=== PATIENT | female | born 2000 | race Caucasian/White ===

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

== ENCOUNTER → 2022-05-02 | Outpatient (CLI) | payer MEDICAID, SELFPAY ==
[2022-05-02 15:58] LABS: Mucous, Urine 0 SEEN /hpf (<or=2+)
[2022-05-02 16:42] LABS: Color, Urine Straw (Yellow); Glucose, Dipstick Normal (Normal); Ketone-Dipstick Negative (Negative); Leukocyte Esterase-Dipstick 500 /ul (Negative); Nitrite-Dipstick Negative (Negative); Occult Blood-Urine 250 /ul (Negative); Protein-Dipstick 30 mg/dl (Negative); Specific Gravity, Urine 1.005 (1.002-1.030); Urine Bilirubin Dipstick Negative (Negative); Urine Clarity Clear (Clear); Urine Urobilinogen Normal (Normal); Urine pH 6.5 (5.0 - 8.0)
[2022-05-02 18:55] LABS: Bacteria 1+ /hpf (None Seen); Red Blood Cells-Urine 0-5 SEEN /hpf (0-5); Squamous Epithelial Cells - UA 0-5 SEEN /hpf (5-10); White Blood Cells 5-10 SEEN /hpf (0-5)
== END | disposition home or self-care (01) ==
LOC: LABSPEC 15:17
PROVIDERS: PCP Pediatrics; Visit Provider Physician Assistant Surgical
DX: R30.0 Dysuria (principal)
CPT/HCPCS: 81001; 87077; 87086; 87088; 87186

== ENCOUNTER 2022-06-19 08:00 | Outpatient (RCR) | payer MEDICAID, SELFPAY ==
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
--- NOTE | 2022-06-19 10:10 | BH.SGPN.GN ---
Behaviors/Verbalizations/Mental Status: [] Client alert and oriented, neatly dressed and groomed. Eye contact normal. Motor activity appropriate. Speech within normal limits. Affect flat, mood anxious. Thoughts linear, logical, no signs of hallucinations or delusions. Client Response/Progress/Benefit: [] Client's first day in program and getting adjusted to group environment. Was semi-engaged participant AEB a sharing when prompted, listening to peers, and participated in activity. Connected with the topic of pitfalls and listened to group discussion on barriers that prevent from choosing a healthier path to mental wellness. Group worked together to identify examples of personal pitfalls which included being in denial, emotional outbursts, and procrastination. Client benefited from group as she learned to better identify potential barriers to improving mental health symptoms. Client will continue IOP tx to challenge negative thought patterns, increase consistent use of healthy coping skills and prevent decompensation. Narrative Note: []
--- NOTE | 2022-06-19 11:26 | BH.COMM_ITS ---
Communication Note - Communication with Client Communication Note: Met with pt to complete initial paperwork. No significant changes since pre-admission screening. Completed [place] Suicide Screening. Low risk. Pt reports history of one suicide attempt in 2019 and one interrupted attempt before then. Pt was hospitalized in 2019. Pt denies any thoughts of and denies SI within the past month. Consulted with Dr. Doll with plan to admit to IOP level of care with dx of MDD, recurrent, severe without psychosis F 33.2
--- NOTE | 2022-06-21 09:05 | BH.SGPN.GN ---
Behaviors/Verbalizations/Mental Status: []Eye contact good, casually dressed, motor activity appropriate, speech normal rate and tone, mood depressed, congruent affect, thoughts linear and intact, no evidence of delusions or hallucinations. Reviewed pt's symptom tracker, pt denies suicidal ideation, plan, or intent as of this date. Future oriented. Client Response/Progress/Benefit: []Pt responded well to session, attentive and willing to process with group. Pt reports feeling defeated this morning. Pt responded well to supportive feedback provided by the group. Shared current emotion is related to several stressors including her brother?s recent changes in physical health status. Pt identified wanting to be able to do more to support him but is struggling with accepting this is out of her control. She did well to identify wins, which included taking a walk outside to ground and practice mindfulness. Additional win noted as going shopping for things she needed despite not wanting to. Progress noted in beginning to apply skills learned thus far in IOP group and improved engagement in group setting. Recommended continued IOP tx to continue to improve consistent use of healthy coping skills, promote mood stability, as well as prevent decompensation. Narrative Note: []
--- NOTE | 2022-06-21 11:10 | BH.SGPN.GN ---
Behaviors/Verbalizations/Mental Status: []Pt alert and oriented, casually dressed and groomed. Eye contact good. Motor activity appropriate. Speech within normal limits. Affect constricted, mood anxious and depressed. Thoughts linear, logical, no signs of hallucinations or delusions. Client Response/Progress/Benefit: []Pt was engaged during discussion and willing to complete the worksheet challenging them to develop a personal SMART goal. Pt chose the goal of taking her dog for a walk every day for a week. Pt stated this will benefit them by helping pt get fresh air and exercise and allowing pt time with her pet. Pt identified barriers which included forgetfulness, lack of energy, anxiety and panic, and lack of motivation. Pt receptive to identifying solutions for these barriers and willing to begin working on this goal. Benefited from this group by developing a short-term SMART goal related to mental health. Will continue IOP tx to prevent decompensation, gain healthy coping skills to manage PTSD, and gain healthy supports. Narrative Note: []
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
[2022-06-21 11:46] VITALS: BP 127/77; PULSE 77
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
--- NOTE | 2022-06-21 12:36 | BH.DR.ITP ---
Initial Treatment Plan Patient Information Visit Information: ADMISSION DATE: EXPECTED LOS: 4-6 weeks Problems/Symptoms Problem #1:: Depression Symptom:: Sadness, hopelessness, worthlessness, guilt, fatigue, biological disruption of sleep, decreased concentration Problem #2:: Anxiety Symptom:: Worry, rumination, avoidance, flashbacks, nightmares, reexperiencing, panic attacks
--- NOTE | 2022-06-23 09:10 | BH.SGPN.GN ---
Behaviors/Verbalizations/Mental Status: Eye contact good, casually dressed, motor activity appropriate, speech normal rate and tone, mood depressed and anxious, congruent affect, thoughts linear and intact, no evidence of delusions or hallucinations. Reviewed pt's symptom tracker, pt denies suicidal ideation, plan, or intent as of this date. Future oriented. Client Response/Progress/Benefit: []Pt responded well to session, attentive and willing to process with group. Pt reports feeling tired this morning. Pt did well to identify wins, which included spending time cleaning her home and listening to music rather than isolating in her room yesterday. Additional win noted as getting outside and filling the bird feeders, which pt notes helped to maintain a positive perspective yesterday. Stressor identified as upcoming plans with her sister that she is worried her sister is going to cancel on. Shared that she can still go to the show if her sister cancels but that she would have to find another way there. Appeared to benefit from group?discussion and supportive environment. Progress noted in increased engagement in the group setting. Recommended continued IOP tx to continue to improve consistent use of healthy skills, promote mood stability, as well as prevent decompensation. Narrative Note: []
--- NOTE | 2022-06-23 10:10 | BH.SGPN.GN ---
Behaviors/Verbalizations/Mental Status: [] Client alert and oriented, casually dressed and groomed. Eye contact good. Motor activity appropriate. Speech within normal limits. Affect congruent, mood euthymic. Thoughts linear, logical, no signs of hallucinations or delusions. Client Response/Progress/Benefit: [] Client responded well to session, contributing to discussion and engaged during the activity. Attentive during discussion on the quote and shared Being comfortable and confident way not motivate change Group identified the benefits of change which included: personal growth, improved relationships, more confidence, and progress towards goals. Worked with the group to identify barriers to change, which included: uncomfortable emotions such as anxiety, lack of motivation, others's opinions, and negative thinking. Client participated along with group in activity where they identified and discussed the emotions related to change. Benefited from increased awareness and understanding of emotions, benefits, and barriers related to change. Will continue IOP tx to continue to prevent decompensation and increase overall functioning. Narrative Note: [] Behaviors/Verbalizations/Mental Status: [] Client alert and oriented, casually dressed and groomed. Eye contact good. Motor activity appropriate. Speech within normal limits. Affect congruent, mood euthymic. Thoughts linear, logical, no signs of hallucinations or delusions. Client Response/Progress/Benefit: [] Client responded well to session, contributing to discussion and engaged during the activity. Attentive during discussion on the quote and shared Being comfortable and confident way not motivate change Group identified the benefits of change which included: personal growth, improved relationships, more confidence, and progress towards goals. Worked with the group to identify barriers to change, which included: uncomfortable emotions such as anxiety, lack of motivation, others's opinions, and negative thinking. Client participated along with group in activity where they identified and discussed the emotions related to change. Benefited from increased awareness and understanding of emotions, benefits, and barriers related to change. Will continue IOP tx to continue to prevent decompensation and increase overall functioning. Narrative Note: [] Behaviors/Verbalizations/Mental Status: [] Client alert and oriented, casually dressed and groomed. Eye contact good. Motor activity appropriate. Speech within normal limits. Affect congruent, mood euthymic. Thoughts linear, logical, no signs of hallucinations or delusions. Client Response/Progress/Benefit: [] Client responded well to session, contributing to discussion and engaged during the activity. Attentive during discussion on the quote and shared Being comfortable and confident way not motivate change Group identified the benefits of change which included: personal growth, improved relationships, more confidence, and progress towards goals. Worked with the group to identify barriers to change, which included: uncomfortable emotions such as anxiety, lack of motivation, others's opinions, and negative thinking. Client participated along with group in activity where they identified and discussed the emotions related to change. Benefited from increased awareness and understanding of emotions, benefits, and barriers related to change. Will continue IOP tx to continue to prevent decompensation and increase overall functioning. Narrative Note: [] Behaviors/Verbalizations/Mental Status: [] Client alert and oriented, casually dressed and groomed. Eye contact good. Motor activity appropriate. Speech within normal limits. Affect congruent, mood euthymic. Thoughts linear, logical, no signs of hallucinations or delusions. Client Response/Progress/Benefit: [] Client responded well to session, contributing to discussion and engaged during the activity. Attentive during discussion on the quote and shared Being comfortable and confident way not motivate change Group identified the benefits of change which included: personal growth, improved relationships, more confidence, and progress towards goals. Worked with the group to identify barriers to change, which included: uncomfortable emotions such as anxiety, lack of motivation, others's opinions, and negative thinking. Client participated along with group in activity where they identified and discussed the emotions related to change. Benefited from increased awareness and understanding of emotions, benefits, and barriers related to change. Will continue IOP tx to continue to prevent decompensation and increase overall functioning. Narrative Note: []
--- NOTE | 2022-06-23 11:10 | BH.SGPN.GN ---
Behaviors/Verbalizations/Mental Status: [] Client alert and oriented, casually dressed and groomed. Eye contact good. Motor activity appropriate. Speech within normal limits. Affect congruent, mood euthymic. Thoughts linear, logical, no signs of hallucinations or delusions. Client Response/Progress/Benefit: [] Client responded well to session, attentive. Did well to process activity and work with group to relate the strategies used to overcome barriers in the activity to managing change in own life. Client identified she would like to focus on getting back in to writing and completing more creative projects. Identified being in the contemplation stage. Client stated her goal is to finish an essay this week. Appeared to benefit from identifying a small goal to work towards. Client will continue IOP tx to prevent decompensation, gain healthy coping skills, and improve daily functioning. Narrative Note: []
--- NOTE | 2022-06-26 10:00 | BH.SGPN.GN ---
Behaviors/Verbalizations/Mental Status: []Eye contact is good. Motor activity is appropriate. Appearance is casual. Speech is Appropriate. Mood is anxious and dysthymic. Affect is constricted. Thoughts are linear and logical. No evidence of psychosis. Client Response/Progress/Benefit: []Pt was an active participant in group discussions and experiential activity, which is progress as pt has been passive in prior groups. Attentive during psychoeducation on resilience, sharing that to her resilience reminds her of Daoist principals. Participated in interactive discussion with peers on the definition of resilience and where it comes from. Group identified that resiliency can be impacted by; past experiences, learned behaviors, and limited or toxic supports. Shared she can connect with examples provided by fellow participants. Group also worked together to identify the benefits of being resilient and how it is related to mental health. Able to relate experiential activity of group juggle to topics of resilience. Worked well with peers in small group in which they identified factors that contribute to resilience. Benefited from increased awareness of resilience and the factors that contribute to building resilience. Will continue in IOP to prevent decompensation, improve impulsivity and use of healthy coping skills, as well as continue to improve functioning. Narrative Note: []
--- NOTE | 2022-06-26 10:14 | PCM.BH.PN ---
Progress Note Progress Note: Met with patient briefly to go over lab results. Thyroid function and Prolactin are WNL. test is negative. Vitamin D is low and discussed options for replacement including Vitamin D2 50,000 IU po once a week for 3 months. Patient says she has Vitamin D at home to take.
--- NOTE | 2022-06-26 11:10 | BH.SGPN.GN ---
Behaviors/Verbalizations/Mental Status: []Pt alert and oriented, casually dressed and groomed. Eye contact fair. Motor activity appropriate. Speech within normal limits. Affect flat, mood depressed. Thoughts linear, logical, no signs of hallucinations or delusions Client Response/Progress/Benefit: []Pt responded well to session AEB completing the resilience worksheet provided. Pt participated in the discussion and worked cooperatively with group to identify strategies to enhance each of the components discussed. Pt completed the prompt given by therapist, but pt declined to share her resiliency traits with the group. Pt was highly engaged in the activity and small group discussion. Pt seemed to benefit from discussing strategies for improving personal resilience and identifying resilience traits pt already possesses. ?Will continue IOP tx to prevent decompensation, improve emotional regulation skills, and reduce isolation. ??? Narrative Note: []
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
--- NOTE | 2022-06-28 09:00 | BH.SGPN.GN ---
Behaviors/Verbalizations/Mental Status: [] Eye contact is good. Motor activity is appropriate. Appearance is casual. Speech is Appropriate. Mood is depressed/irritable. Affect is congruent. Thoughts are linear and logical. No evidence of psychosis. Reviewed daily check in sheet and no reports of suicidal ideations or intent. Client Response/Progress/Benefit: [] Pt participated at times during the group discussion. Attentive. Daily symptom tracker notes 06/18 for depression and anxiety. Mental health win was ?I?ve taken my medications and haven?t drank in 5 days?. ?It?s been hard not to drink?. She has not seen benefits to these changes yet. Shared stressor related to a certain family member she chooses not to speak too. Reports guilt and feels some pressure to re-connect as this family member is possibility ill. Group provided feedback and support which was beneficial. Will continue in IOP to prevent decompensation, increase healthy coping, and to stabilize mood. Narrative Note: []
--- NOTE | 2022-06-28 10:14 | BH.SGPN.GN ---
Behaviors/Verbalizations/Mental Status: [] Client alert and oriented, neatly dressed and groomed. Eye contact good. Motor activity appropriate. Speech normal. Affect congruent, mood euthymic and anxious. Thoughts linear, logical, no signs of hallucinations or delusions. Client Response/Progress/Benefit: [] Client was an engaged participant AEB client listening attentively to others and participating when prompted. Attentive during psychoeducation on communication styles. Assisted group with identifying barriers of effective communication which included: assuming, shutting down, dominating the conversation, and getting emotional. Client identified she most often uses passive aggressive communication with indicating it works about to get emotional needs met. Client reports being passive-aggressive can make relationships like a roller coaster with conflict not always been resolved. Benefited from increased awareness of different communication barriers, styles, and the importance of communicating effectively to improve mental wellness. Will continue IOP tx to improve emotional regulation skills, increase self-awareness, and increase overall functioning. Narrative Note: []
--- NOTE | 2022-06-28 11:14 | BH.SGPN.GN ---
Behaviors/Verbalizations/Mental Status: [] Client alert and oriented, casually dressed and groomed. Eye contact good. Motor activity appropriate. Speech within normal limits. Affect congruent, mood euthymic and anxious. Thoughts linear, logical, no signs of hallucinations or delusions Client Response/Progress/Benefit: [] Client responded well to session AEB client listening attentively to others and providing input during group discussion. Client did well in the activity to be assertive and ask for feedback. Recognizes if group wasn't assertive in activity, they wouldn't have been successful. Discussed with group communication strategies used to make activity successful. Attentive during psychoeducation on interpersonal DBT skill WAQAR. Client set a goal to work on reinforcing others when they respond well to encourage them. Client seemed to benefit from increasing awareness of healthy strategies to improve communication. Will continue IOP tx to improve impulse control, increase self-awareness, and improve daily functioning. Narrative Note: []
--- NOTE | 2022-07-03 09:03 | BH.SGPN.GN ---
Behaviors/Verbalizations/Mental Status: []Eye contact good, casually dressed, motor activity appropriate, speech normal rate and tone, mood euthymic and anxious, congruent affect, thoughts linear and intact, no evidence of delusions or hallucinations. Reviewed pt's symptom tracker, pt denies suicidal ideation, plan, or intent as of this date. Future oriented. Client Response/Progress/Benefit: []Pt responded well to session, attentive and willing to process with group. Pt reports feeling calm? this morning noting that this may be due to having a positive weekend. Pt did well to identify wins, which included challenging herself to be social and go out in public while her aunt was visiting. Shared use of opposite action, thought challenging, and positive self-talk in order to do so. Additional win identified as taking time for self-care via cooking and cleaning throughout the weekend. Shared these are activities she really enjoys and finds comforting. Current stressor identified as having really vivid dreams which she continues to think about throughout the next day. Receptive of supportive feedback provided by the group and noted plans to continue to monitor her dreams as she adjusts to the medications she is on. Progress noted in beginning to apply skills learned thus far in IOP group. Recommended continued IOP tx to continue to improve consistent use of healthy anxiety management skills, promote mood stability, as well as prevent decompensation. Narrative Note: []
--- NOTE | 2022-07-03 10:10 | BH.SGPN.GN ---
Behaviors/Verbalizations/Mental Status: []Pt alert and oriented, casually dressed and groomed. Eye contact good. Motor activity appropriate. Speech within normal limits. Affect congruent, mood euthymic. Thoughts linear, logical, no signs of hallucinations or delusions. Client Response/Progress/Benefit: []Pt was an engaged participant AEB providing input, listening to others, and taking notes. Participated in interactive group discussion on internal and external barriers to mental health progress. Pt described current reality using a field and cave metaphor. Pt shared feeling like ?I started in a beautiful field and chose to go into a dark cave and got lost.? Reported desired reality is being able to get out of the cave, but know she can return to it when she feels better. Pt?s strengths in current reality included family support. Pt shared personal barriers to desired realty include: guilt/shame, isolation, and negative thinking. Benefited from increased awareness of current barriers to progress as well as current/desired realities. Pt to continue IOP to prevent decompensation, improve daily functioning, and reduce isolative behaviors. ? Narrative Note: []
--- NOTE | 2022-07-03 11:10 | BH.SGPN.GN ---
Behaviors/Verbalizations/Mental Status: []Pt alert and oriented, casually dressed and groomed. Eye contact fair. Motor activity appropriate. Speech within normal limits. Affect constricted, mood anxious. Thoughts linear, logical, no signs of hallucinations or delusions. Client Response/Progress/Benefit: []Pt engaged during activity, encouraging peers and contributed as group brainstormed ideas on how to cope with internal barriers that keep pts stuck from moving towards goals. Able to identify barriers to desired reality. Identified barriers to current reality to include: avoidance/isolation, lack of motivation, and guilt. Pt wants to work on overcoming the barrier of avoidance/isolation by scheduling a hangout in public. Benefited from group by identifying obstacles and solutions to desired reality.? Pt will continue IOP tx to improve daily functioning, increase healthy coping skills, and prevent decompensation.
--- NOTE | 2022-07-03 13:54 | BH.MDN ---
Multi-Disciplinary Note - Note 30-min Individual Time Started:: 12:10 Date: 07/03/22 Purpose of session/treatment goals addressed:: To gather information on pt's symptoms and provide psychoeducation on intrusive thoughts. Eye Contact:: Other - scanning Motor Activity:: Appropriate Appearance:: Casual Speech:: Appropriate Mood:: Anxious Affect:: Congruent Thoughts:: Linear, Other - reports having thoughts that other people know what I'm thinking. Staff Interventions:: psychoeducation on: - intrusive thoughts, rapport building, strengths perspective, other - gave pt homework to read chapter 1 of the overcoming unwanted intrusive thoughts book Client Response:: Pt responded somewhat well to session, open to meeting with therapist, but appeared eager to leave session AEB pt's quick departure. Pt shared she had a really good weekend and that pt was able to send time with her family. Pt is close with her siblings and finds great benefit from being with them. Pt also shared she planned her backpacking trip which pt is looking forward to. Therapist brought up intrusive thinking as pt had shared last week in first group that she was struggling with this. Pt shared she has researched about intrusive thoughts, but pt struggles to understand why she has them and how to manage them. Pt receptive to reading a chapter from overcoming unwanted intrusive thoughts. Pt will also continue to work on reducing avoidance and isolation by scheduling hangouts with supports in public. Risks/Concerns:: Pt denies any suicidal ideations, plan, or intent. Pt does admit to having thoughts that other people can live through me and can hear pt's thoughts. IOP psychiatrist will follow up with pt to further evaluate. Progress Toward Goals/Plan:: Pt continues to respond well to tx as pt is engaged and mostly consistent with attendance. Pt reports utilizing healthy coping skills over the weekend which helped pt reduce isolation. Pt continues to endorse depressive symptoms including negative thinking, isolative behaviors, anhedonia. Pt reports she has been having vivid dreams recently which are disturbing to pt. Pt also shared more about her intrusive thoughts today and feeling like others can read her mind. Pt will continue IOP tx to prevent decompensation, increase use of healthy coping skills, and improve daily functioning. Time Stopped:: 12:35
--- NOTE | 2022-07-05 09:00 | BH.SGPN.GN ---
Behaviors/Verbalizations/Mental Status: []Pt alert and oriented, neatly dressed and groomed. Eye contact good. Motor activity appropriate. Speech within normal limits. Affect congruent, mood agitated. Thoughts linear, logical, no signs of hallucinations or delusions. Reviewed pt?s symptom tracker, no risk for suicidal ideation, plan, or intent as of 07/05/22 Client Response/Progress/Benefit: [] Pt was quiet, but participated when promoted. Pt reports feeling antsy and agitated this morning as pt is 24 hours no smoking. Pt shared she wanted to quit because she has goals for this summer that smoking would not help. Pt identified spending time with her dog, walking, and taking more showers as her mental health wins today. Pt shared her stressor is that she has been avoiding an appointment and she does not know how to approach it. Pt declined to go in further detail. Pt appeared to benefit from reflecting on her increased physical self-care. Pt will continue IOP tx to prevent decompensation, improve daily functioning, and reduce isolation. Narrative Note: []
--- NOTE | 2022-07-05 10:15 | BH.SGPN.GN ---
Behaviors/Verbalizations/Mental Status: [] Eye contact is poor. Motor activity is appropriate. Appearance is casual. Speech is Appropriate. Mood is depressed. Affect is flat. Thoughts are linear and logical. No evidence of psychosis. Client Response/Progress/Benefit: [] Limited participation. This group was very heavy on psychoeducation and pt was attentive AEB by note-taking, providing input when appropriate, and asking questions. Attentive during interactive discussion in which peers attempted to define and give examples of automatic negative thoughts and cognitive distortions. Therapist presented and reviewed ten common cognitive distortions (All or Nothing thinking, mental filter, jumping to conclusions, emotional reasoning, labeling, overgeneralization, disqualifying the positives, catastrophizing, shoulds, and personalization). Benefited from increased understanding of cognitive distortions and how they impact automatic negative thoughts. Will continue in IOP to stabilize mood, provide support during acture stressors, and increase healthy coping skills. Narrative Note: []
--- NOTE | 2022-07-05 11:10 | BH.SGPN.GN ---
Behaviors/Verbalizations/Mental Status: []Eye contact is fair to poor. Motor activity is appropriate. Appearance is casual. Speech is WNL. Mood is anxious and dysthymic. Affect is constricted. Thoughts are linear and logical. No evidence of psychosis. Client Response/Progress/Benefit: []Pt mostly quiet participant AEB providing limited input during small group discussion, however did show increased engagement during activity. Activity involved working with peers to answer questions related to psychoeducation on cognitive distortions and practicing reframing distorted thoughts. Pt collaborated with the group to determine the answers. Identified cognitive distortion struggles with the most as personalization. Benefited from rehearsing ways to challenge/reframe cognitive distortions and by gaining increased insight into examples/definitions of 10 most common cognitive distortions. Will continue in IOP to increase healthy coping skills, increase confidence, and prevent decompensation.
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
--- NOTE | 2022-07-11 09:00 | BH.SGPN.GN ---
Behaviors/Verbalizations/Mental Status: []Pt alert and oriented, casually dressed and groomed. Eye contact good. Motor activity appropriate. Speech within normal limits. Affect congruent to topics discussed, mood stressed. Thoughts linear, logical, no signs of hallucinations or delusions. Reviewed pt?s symptom tracker, no risk for suicidal ideation, plan, or intent as of 07/11/22 Client Response/Progress/Benefit: []Pt responded well to session, attentive and receptive to feedback. Pt reported many positives today, but pt shared her emotion is distant and off this morning. Pt shared she is planning to go on the [employer] in July and feels excited but anxious that I have to get my life together before I go. Pt also isolated this weekend for a day instead of spending time with her supports which pt felt bad about. Pt receptive to group feedback and ideas to cope. Pt's mental health wins today include reducing self-stigma for her intrusive thoughts and talking with her sister about her intrusive thoughts instead of feeling shame about them. Pt also took time for self-care this weekend and to channel my inner child. Pt will continue IOP tx to promote mood stability, reduce intensity of intrusive thoughts, and improve daily functioning. Narrative Note: []
--- NOTE | 2022-07-11 10:12 | BH.SGPN.GN ---
Behaviors/Verbalizations/Mental Status: []Pt alert and oriented, casually dressed and groomed. Eye contact good. Motor activity appropriate. Speech within normal limits. Affect congruent, mood anxious and dysthymic. Thoughts linear, logical, no signs of hallucinations or delusions. Client Response/Progress/Benefit: [] Pt participated in group discussion, though continues to remain passive in conversation, however takes notes and provides input when prompted. Group worked together to identify benefits of healthy relationships which included improves mental health, encouragement, increased resilience, reduced stress, connection, someone to celebrate with, and support during challenges. Group identified factors that lead to unhealthy relationships which included trauma, lack of communication, difference in values, and lack of trust. Pt nodded in connection with different values and past experiences as challenges to healthy relationships. Did well to participate, provide more input and ideas, as well as actively listen to other?s ideas during the activity. Benefited from increased insight and awareness of benefits of healthy relationships and factors that contribute to unhealthy relationships. Will continue in IOP to continue to encourage consistent healthy coping skill application, improve emotion regulation, and prevent decompensation. ? Narrative Note: []
--- NOTE | 2022-07-11 11:10 | BH.SGPN.GN ---
Behaviors/Verbalizations/Mental Status: [] Client alert and oriented, casually dressed and groomed. Eye contact fair. Motor activity appropriate. Speech within normal limits. Affect constricted, mood anxious. Thoughts linear, logical, no signs of hallucinations or delusions. Client Response/Progress/Benefit: [] Client mostly passive participant AEB limited contributions in small group discussion, however did appear to take notes and listen attentively to others. Worked with group to identify characteristics of healthy and unhealthy relationships. Attentive during psychoeducation about characteristics of healthy, unhealthy, and abusive relationships. Client chose to not share one thing she does well in a relationship and what area she could benefit from working on. Appeared to benefit from identifying area wants to work on to build healthier relationships. Pt recommended to continue IOP tx to challenge distorted thoughts, increase healthy coping, and prevent decompensation.
== END 2022-07-11 23:59 ==
LOC: BHIOP 08:00
PROVIDERS: PCP Pediatrics; Referring Provider Psychiatry & Neurology Psychiatry; Visit Provider Psychiatry & Neurology Psychiatry
DX: F33.2 Major depressive disorder, recurrent severe without psychotic features (principal); F43.10 Post-traumatic stress disorder, unspecified; F41.1 Generalized anxiety disorder; F41.8 Other specified anxiety disorders; F10.90 Alcohol use, unspecified, uncomplicated; Z79.899 Other long term (current) drug therapy
CPT/HCPCS: 90792; H2012; H2020; S9480; T1002; 90832; 90834; 90837

== ENCOUNTER → 2022-06-23 | Outpatient (CLI) | payer MEDICAID, SELFPAY ==
[2022-06-23 13:38] LABS: Vitamin D,25 Hydroxy 22.6 ng/mL; hCG Titer Quant., Serum < 1 mIU/mL (1-3)
[2022-06-23 14:11] LABS: Prolactin 11.4 ng/mL; T4 Free Direct 1.03 ng/dL (0.76-1.46); T4 Total, Thyroxin 7.3 ug/dL (4.8-13.9)
== END | disposition home or self-care (01) ==
LOC: LAB 12:07
PROVIDERS: PCP Pediatrics; Referring Provider Psychiatry & Neurology Psychiatry; Visit Provider Psychiatry & Neurology Psychiatry
DX: E55.9 Vitamin D deficiency, unspecified (principal); N91.5 Oligomenorrhea, unspecified
CPT/HCPCS: 36415; 82306; 84146; 84436; 84439; 84443; 84702

== ENCOUNTER 2022-07-12 06:48 | Outpatient (RCR) | payer MEDICAID, SELFPAY ==
[2022-07-12 00:33] VITALS: BP 127/77; PULSE 77
--- NOTE | 2022-07-12 09:05 | BH.SGPN.GN ---
Behaviors/Verbalizations/Mental Status: []Pt alert and oriented, casually dressed and groomed. Eye contact good. Motor activity appropriate. Speech within normal limits. Affect congruent, mood euthymic. Thoughts linear, logical, no signs of hallucinations or delusions. Reviewed pt?s symptom tracker, no risk for suicidal ideation, plan, or intent as of 07/12/22 Client Response/Progress/Benefit: []Pt responded well to session, attentive and engaged. Pt reports feeling excited this morning as pt has been utilizing more skills and finding benefit. Pt shared she woke up early today and was able to be productive and have a relaxing morning prior to group. Pt also has been keeping track of her accomplishments which has helped pt give herself more credit and challenge her perspective. Pt's stressor today is that she is leaving in a few weeks to hike the [employer] and pt feels like I have to get my life in order before she goes. Pt appeared to benefit from group challenging pt's perspective and offering support. Pt will continue IOP tx to promote mood stability, combat anxious thought patterns, and improve daily functioning. Narrative Note: []
--- NOTE | 2022-07-12 10:10 | BH.SGPN.GN ---
Behaviors/Verbalizations/Mental Status: [] Eye contact is fair. Motor activity is appropriate. Appearance is casual. Speech is Appropriate. Mood is dysthymic. Affect is constricted. Thoughts are linear and logical. No evidence of psychosis or hallucinations. Client Response/Progress/Benefit: [] Pt was an active participant in group discussion and activity. Attentive during psychoeducation. Along with peers was able to identify barriers to taking action. Identified several symptoms and stressors that she feels are holding her back from progress such as codependency, belief she has to be perfect, intrusive thoughts, seeking comfort and familiarity. Stated these things keep her from trying new things because of the fear of failing and not be perfect. Benefited from increased self-awareness of obstacles. Will continue in IOP to improve ability to set realistic expectations, challenge distortions, and prevent decompensation.
--- NOTE | 2022-07-12 11:07 | BH.SGPN.GN ---
Behaviors/Verbalizations/Mental Status: []Client alert and oriented, casually dressed and groomed. Eye contact fair. Motor activity appropriate. Speech within normal limits. Affect congruent, mood anxious and irritable. Thoughts linear, logical, no signs of hallucinations or delusions. Client Response/Progress/Benefit: []Client responded well to session, taking notes and participating in worksheet discussion. Client connected with the zones of action/change and that making sustainable change comes from stepping out of one?s comfort zone into the learning zone. Client set a goal to gain control over the need to be perfect. Client reported not knowing what goal to create to do so and did not complete the worksheet provided. Client consistently struggles with completing homework/worksheets provided in group which may impede ability to self-reflect and internalize the skills she is learning. Will continue IOP tx to increase healthy coping, promote mood stability, and prevent decompensation. Narrative Note: []
--- NOTE | 2022-07-12 14:37 | BH.MDN ---
Multi-Disciplinary Note - Note 45-min Individual Time Started:: 12:00 Date: 07/12/22 Purpose of session/treatment goals addressed:: To work on goal #1 of pt's tx plan and to identify strategies to reduce perfectionism. Eye Contact:: Good Motor Activity:: Appropriate Appearance:: Neat Speech:: Appropriate Mood:: Euthymic, Anxious Affect:: Congruent Thoughts:: Linear, Logical, No evidence of hallucinations/delusions noted Staff Interventions:: thought challenging, motivational interviewing, CBT techniques, strengths perspective, goal setting Client Response:: Pt responded well to session, open to meeting with therapist. Pt reports she has been doing more things and is feeling better than when she started. Pt shared she is anxious and excited about her upcoming hiking trip which pt has been planning. Pt acknowledges that some of her anxiety is due to tangible tasks that need accomplished and some is due to really unrealistic expectations. Pt shared on of these expectations is that pt needs to get my whole life in order and hang out with all my friends and clean the house. Pt able to challenge this perspective by looking at what is most important and who pt can turn to for support. Pt also came up with ways to connect with friends before she leaves without scheduling numerous hangouts which would add stress. Pt also receptive to beginning to challenge her perfectionism thinking by engaging in some behavior experiments. Discussed how pt could practice sitting with the uncomfortable by not fixing a chore that others have done. 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 Pt receptive to trying sitting with the uncomfortable for homework. Risks/Concerns:: Pt denies any suicidal ideations, plan, or intent as of 07/12/22. Progress Toward Goals/Plan:: Pt continues to make progress towards her tx goals AEB pt's report of improved functioning at home and reduction of DSM-5 scores by 25% since admission. Pt has been more social and is engaging in more self-care. Pt's anxiety remains the same since admission and pt is mostly anxious about preparing for an upcoming hiking trip. Pt is becoming more open about her negative thought patterns and is willing to challenge these. Pt will continue IOP tx to promote mood stability, reduce unrealistic expectations of self, and further improve daily functioning. Time Stopped:: 12:45
--- NOTE | 2022-07-12 14:50 | BH.TPR ---
Treatment Plan Review Date of Admission:: 06/19/22 Date of Treatment Plan Review:: 07/12/22 Admitting Diagnoses:: Major depressive disorder, recurrent, severe without psychosis F 33.2; PTSD; Generalized anxiety disorder; Social anxiety disorder; Alcohol use disorder; History of anorexia with purging by emesis; Avoidant and cluster B traits Current Diagnoses:: Major depressive disorder, recurrent, severe without psychosis F 33.2; PTSD; Generalized anxiety disorder; Social anxiety disorder; Alcohol use disorder; History of anorexia with purging by emesis; Avoidant and cluster B traits Patient's Response to Treatment:: Pt has responded well to treatment AEB pt's mostly consistent attendance to IOP sessions and reduction of overall symptoms on the DSM-5 by 25% since admission. Pt contributes well during individual sessions and she is becoming more engaged during group sessions. Pt applies coping skills outside of IOP and reports overall mood is improving. Pt is consistent with her medications and has stopped drinking since pt started taking medication. Status of Current Problems and Symptoms: Pt continues to report symptoms of anxiety such as avoiding things that make her anxious and feeling nervous and frightened most days. Pt's depressive symptoms have decreased, but pt still reports moderate symptoms per the DSM-5. Pt has been having vivid dreams lately and pt is still learning how to manage her intrusive thoughts. Pt is also gaining insight to how her perfectionism reinforces anxiety and depression. Pt has positive stressors as well including preparing for the [facility] and maintaining sobriety from alcohol. Problem #1 Problem Name:: Depression, hopelessness, anhedonia, isolation, worthlessness. Status of Goals:: Objective 1- in progress. Pt?s DSM-5 scores for depression have decreased by 14% since admission. Pt can identify healthy coping skills and reports using opposite action and engaging in hobbies. Objective 2- in progress. Pt is working on goal setting and pt reports her functioning at home is improving. Pt is doing more social activities as well. Team Recommendations:: Treatment tx encourages pt to continue working on this tx goal as pt has made progress, but she can continue to reduce intensity of depressive symptoms and combat negative self-talk. Pt is also working on combating her unrealistic expectations of herself. Problem #2 Problem Name:: Anxiety, avoidance, intrusive thoughts, and unhealthy coping skills. Status of Goals:: Objective 1- in progress. Pt has been able to maintain sobriety from alcohol which pt was using to cope with mental health symptoms. Pt has also gained awareness of intrusive thoughts and how to begin managing these. Objective 2- not complete. Pt?s DSM-5 scores for anxiety have not decreased since admission, but pt continues to be open to learning how to regulate her anxiety and intrusive thoughts. Team Recommendations:: Treatment team recommends pt continue working on this goal as pt is aware of her intrusive thoughts and is working on managing these, but pt still struggles with judging herself for the thoughts. Pt also encouraged to continue working on this goal as pt's symptoms for anxiety have not decreased since admission.
--- NOTE | 2022-07-14 09:05 | BH.SGPN.GN ---
Behaviors/Verbalizations/Mental Status: [] Eye contact is good. Motor activity is appropriate. Appearance is casual. Speech is Appropriate. Mood is euthymic. Affect is full. Thoughts are linear and logical. No evidence of psychosis. Reviewed daily check in sheet and no reports of suicidal ideations or intent. Client Response/Progress/Benefit: [] Pt participated at times during the group discussions. Attentive. Mental health win is I'm 3 weeks sober. Shared that yesterday was the the best day of the entire year for her. Shared the activities and skills that she utilized which helped her maintain her positive day which included; being outside, being social, reframing, and challenging automatic thoughts. She shared upcoming events that she is looking forward too and overall is utilizing healthy skills to cope with emotions/distress. Benefited from group support, encouragement, praise, and feedback. Will continue in IOP to prevent decompensation, increase healthy coping, and to stabilize mood. Narrative Note: []
--- NOTE | 2022-07-14 10:20 | BH.SGPN.GN ---
Behaviors/Verbalizations/Mental Status: []Client alert and oriented, casually dressed and groomed. Eye contact fair. Motor activity appropriate. Speech within normal limits. Affect congruent, mood euthymic. Thoughts linear, logical, no signs of hallucinations or delusions. Client Response/Progress/Benefit: []Client receptive to session AEB contributing to discussion, as well listening attentively to others, and taking notes. Worked with group to brainstorm the positive and negative aspects of stress on physical and mental health. Group did well to identify the benefits of stress as well as the impact of distress on performance, relationships, and mental health. Client identified their personal top stressors as: health issues, mental health, family, difficulty communicating, and moving soon. Client reports when the stress overflows client reported her reaction variers from panic attacks, anger, crying and eventual shutting down. Client seemed to benefit from increased awareness of current stressors and impact stress has on mental health. Recommended to continue IOP tx to further continue to promote healthy coping, challenge distorted thoughts, and prevent decompensation.
--- NOTE | 2022-07-14 11:15 | BH.SGPN.GN ---
Behaviors/Verbalizations/Mental Status: []Pt alert and oriented, neatly dressed and groomed. Eye contact fair. Motor activity appropriate. Speech within normal limits. Affect congruent, mood euthymic and stressed. Thoughts linear, logical, no signs of hallucinations or delusions. Client Response/Progress/Benefit: []?Pt engaged participant AEB listening attentively to others and contributing to discussion. Attentive during psychoeducation on the 4 A's of Coping with Stress (Avoid, Alter, Adapt, Accept). Participated in experiential activity in which group members had to utilize stress management skills in the moment. Pt shared working with people is hard for her, so she benefited from the activity. Pt was encouraging others and providing direction to group. Pt engaged in review of the 4 A?s and picked wanting to work on adapting her perspective and standards to help pt maintain relationships.? Benefited from processing in the moment stress management strategies and identifying new ways to cope with stress. Will continue in IOP tx to promote mood stability, increase distress tolerance skills, and combat distortions. Narrative Note: []
--- NOTE | 2022-07-17 09:03 | BH.SGPN.GN ---
Behaviors/Verbalizations/Mental Status: []Eye contact is good. Motor activity is appropriate. Appearance is casual. Speech is Appropriate. Mood is euthymic, anxious, positive. Affect is congruent. Thoughts are linear and logical. No evidence of psychosis. Reviewed daily check in sheet and no reports of suicidal ideations or intent. Client Response/Progress/Benefit: []Pt was an active participant in group discussion. Attentive. Pt reported mental health positive as sitting with the uncomfortable on several occasions throughout the weekend. Went on to explain that her sister?s wedding was the previous day and that she would normally want to have more control and go out of her way to make things ?perfect?. However, did well to challenge herself to lower her expectations and learn to embrace imperfection, which she feels allowed for her to have a more enjoyable experience. Additional positive noted as continuing to use opposite action and positive self-talk to step outside of her comfort zone today by making plans to catch up with an old boss she is close with. Pt appeared to benefit from the supportive group environment as well as acknowledging her own progress. Will continue in IOP tx to to improve consistent use of healthy self-talk, promote mood stability, and prevent decompensation. Narrative Note: []
--- NOTE | 2022-07-17 10:15 | BH.SGPN.GN ---
Behaviors/Verbalizations/Mental Status: []Pt alert and oriented, causally dressed and groomed. Eye contact fair. Motor activity appropriate. Speech within normal limits. Affect congruent, mood euthymic. Thoughts linear, logical, no signs of hallucinations or delusions. Client Response/Progress/Benefit: []Pt participated at times during the group discussions. Participated during interactive discussion on defining conflict (internal/external) and possible benefits to conflict. Attentive during psychoeducation on conflict styles and engaged during small group activity in which peers identified the benefits and consequences to each conflict style. Pt identified that their primary conflict style is avoidant. Stated she was raised in an environment in which her caregivers used avoidant conflict resolution style which has impacted the way to manages conflict. Able to see the impact avoiding conflict has had on her mental health. Benefited from increased awareness of the impact of conflict styles in mental health. Will continue in IOP to continue use of healthy coping, increase confidence, and prevent decompensation.
--- NOTE | 2022-07-17 11:10 | BH.SGPN.GN ---
Behaviors/Verbalizations/Mental Status: []Pt alert and oriented, disheveled appearance. Eye contact good. Motor activity appropriate. Speech within normal limits. Affect congruent, mood euthymic. Thoughts linear, logical, no signs of hallucinations or delusions. Client Response/Progress/Benefit: []Pt engaged in session AEB contributing to discussion and engaging in activity. Pt did well to review current conflict style and its impact on mental health. Attentive and taking notes during discussion on strategies for more effectively managing conflict in personal life.? Pt participated in activity and did well to talk through choices with peers. Pt given handout on fair fighting rules and identified that they want to work on not stonewalling when faced with conflict. Appeared to benefit from gaining strategies to help pt better manage conflict. Will continue IOP tx to increase emotional regulation skills, improve self-compassion, and reduce isolation. Narrative Note: []
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
--- NOTE | 2022-07-19 10:15 | BH.SGPN.GN ---
Behaviors/Verbalizations/Mental Status: [] Client alert and oriented, casually dressed and groomed. Eye contact good. Motor activity appropriate. Speech within normal limits. Affect congruent, mood euthymic. Thoughts linear, logical, no signs of hallucinations or delusions. Client Response/Progress/Benefit: Pt participated at times during group discussion. Active during group activity. Attentive during psychoeducation on fear and the impact that fear of failure can have. Pt and peers provided insight on thoughts that contribute to fear of failure such as: I'm not good enough, I won't succeed, I know I can't/couldn't do it, and I could have done that better. Pt and peers were able to identify the benefits to failure in an attempt to reframe. Group identified that failure can be a way to: learn what to do differently, lead to personal growth, increase self-compassion, and problem-solve. Pt benefited from psychoeducation on the impact of fear of failure and changing perspective on how to view setbacks. Pt will continue in IOP to maintain gains, continue to reinforce healthy coping skills, and prevent decompensation.
--- NOTE | 2022-07-19 11:10 | BH.SGPN.GN ---
Behaviors/Verbalizations/Mental Status: []Client alert and oriented, casually dressed and groomed. Eye contact good. Motor activity appropriate. Speech within normal limits. Affect congruent, mood euthymic. Thoughts linear, logical, no signs of hallucinations or delusions. Client Response/Progress/Benefit: []Client responded well to session, engaged in the experiential activity and attentive throughout group processing. Client reported fear of failure has kept client from college, exploring relationship opportunities, and moving out. Client completed fear of failure worksheet and was able to identify thoughts and behaviors that reinforce personal fear of failure including difficulty saying no, negative core beliefs, and intrusive thoughts. Client participated in group discussion regarding strategies to overcome fear of failure. Identified wanting to work on practicing radical acceptance. Appeared to benefit from increased knowledge of strategies to combat fear of failure and gaining self-awareness. Client will continue IOP tx to increase distress tolerance skills, healthy boundaries, and improve overall functioning. Narrative Note: []
--- NOTE | 2022-07-19 11:57 | PCM.BH.PN ---
Progress Note Progress Note: History of Present Illness/Interim History: The patient is a 22-year-old female with a history of depression, anxiety and cluster B traits who is seen in follow-up at the [facility] behavioral health IOP program. The patient was last seen about 1 month ago and at that time she was placed on Effexor XR 37.5 mg. She has been taking it for 3 and half weeks now and is tolerating the medication well. She does feel that her mood is much less depressed than it was before and is approaching euthymia. She denies hopelessness or worthlessness. Concentration has improved. Her sleep is 8 to 9 hours a night now so she has sleeping much less than she was before which is an improvement. Her panic attacks are also less and she has only had 2 in the past 4 weeks. She has noticed some increase in dreaming and sweating in the morning on the Effexor but is able to tolerate this well. She has not used any alcohol in 3 weeks now she has been sober. [facility] [place] [facility] [place] [facility] [place]. She feels she is learning valuable skills in the IOP program and this has also helped her improve. In addition the patient stopped the Gallup's wort as instructed last month. Current Psychiatric Medications: [] Effexor XR 37.5 mg p.o. daily (x3-1/2 weeks) Mental Status Examination: [] Patient is a 22-year-old female who appears normal for stated age and is casually dressed and groomed with good hygiene. She is ambulatory with a normal gait and has no psychomotor agitation or retardation. She is cooperative and pleasant during the interview. Eye contact is good and speech is normal rate and rhythm and fluent with no pressure. Mood is minimally anxious or depressed approaching euthymia. Affect is full and normal. Thought process is goal-directed and organized. Thought content: Patient is looking forward to her approaching hike vacation. There is no evidence of passive thoughts of , suicidal ideation, plan for suicide, homicidal ideation, hallucinations or delusions. Reality testing is intact. Impulsivity is moderate. Judgment is good. Intelligence is average or above average. Diagnoses: [] 1. Major depressive disorder, recurrent, severe without psychosis (resolving) 2. PTSD 3. Generalized anxiety disorder 4. Social anxiety disorder 5. Alcohol use disorder (sober for 3 weeks) 6. Avoidant and cluster B traits 7. History of anorexia with purging by emesis Plan: [] The patient will continue the IOP program at [facility] as the structure, support, education and group therapy is benefiting the patient. She felt safe during the interview and if it anytime she does not feel safe she will let us know or go to the emergency room. The risks, options, possible complications and side effects of the medications were again discussed with the patient and she understands and accepts these. She is wishes to continue on the same dose of Effexor XR as she feels it has helped her immensely. Refill is sent in for this with a 90-day supply with 1 refill so the patient can stay on her medication while she hikes for several months on the [facility] in the spring. She will continue to stay sober from any alcohol or drug use. She will continue to follow-up with her outpatient psychiatric and medical providers and I will see the patient in follow-up while she is in the IOP program.
--- NOTE | 2022-07-21 09:00 | BH.SGPN.GN ---
Behaviors/Verbalizations/Mental Status: []Pt alert and oriented, casually dressed and groomed. Eye contact fair. Motor activity appropriate. Speech within normal limits. Affect congruent, mood euthymic. Thoughts linear, logical, no signs of hallucinations or delusions. Reviewed pt?s symptom tracker, no risk for suicidal ideation, plan, or intent as of 07/21/22 Client Response/Progress/Benefit: []Pt responded well to session, attentive and engaged. Pt reports feeling relaxed this morning. Pt shared she had a really positive day yesterday and pt was able to challenge negative thinking and practice a lot of gratitude. Pt stated she is feeling less stressed about her upcoming hiking trip because she is getting things figured out and she is reaching out to supports. Pt is stressed about money, but not for herself, for her family. 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 Pt notices progress in her ability to not dwell on this stressor like she would have before. Pt appeared to benefit from reflecting on her growth. Pt will continue IOP tx to promote mood stability, further combat distortions, and promote gains. Narrative Note: []
--- NOTE | 2022-07-21 10:10 | BH.SGPN.GN ---
Behaviors/Verbalizations/Mental Status: [] Eye contact is poor. Motor activity is appropriate. Appearance is casual. Speech is Appropriate. Mood is depressed/irritable. Affect is congruent. Thoughts are linear and logical. No evidence of psychosis. Client Response/Progress/Benefit: [] Pt did not participate in group discussions. Attentive during psychoeducation. Attentive during interactive discussions in which peers attempted to define crisis. Group also worked together to identify unhealthy responses to crisis which included; isolation, self-harm, over-sleeping, impulsive activities, over-sharing, and lashing out. Pt identified her top 3 warning signs that she is in crisis which were 1.Crying 2. Poor sleep 3. Isolate. Benefited from increased understanding of crisis and awareness of personal warning signs to crisis. Will continue in IOP to maintains safety, prevent decompensation/re-admission to psych unit, and to improve functioning to return to normal daily routines. Narrative Note: []
--- NOTE | 2022-07-21 14:33 | BH.MDN_ITS ---
Multi-Disciplinary Note - Note 45-min Individual Time Started:: 12:00 Date: 07/21/22 Purpose of session/treatment goals addressed:: To work on goal #2 of pt's treatment plan. Another goal was to discuss upcoming discharge. Eye Contact:: Good Motor Activity:: Appropriate Appearance:: Casual Speech:: Appropriate Mood:: Anxious, Other - agitated Affect:: Congruent Thoughts:: Linear, Logical, No evidence of hallucinations/delusions noted Staff Interventions:: thought challenging, CBT techniques, discharge planning, strengths perspective, goal setting Client Response:: Pt responded well to session, open to meeting with therapist. Pt left group today and therapist found pt in one of the group rooms. Pt shared she noticed she was getting highly irritable towards another pt, so pt felt it was best to take a break and use grounding skills. Pt stated she was triggered due to someone giving advice that pt felt was unhelpful. Pt shared this reminded pt of the time she was in another IOP actively in her ED and someone gave her invalidating advice. Pt stated she is feeling better now that she was able to decompress. Pt feels ready for her hike and she plans to leave next weekend. Pt is anxious about leaving her family, but pt logically knows they will be fine without me. Reviewed discharge plan and pt and therapist agreed it would be better to wait to schedule counseling until pt returns from her hike. Risks/Concerns:: Pt denies any suicidal ideations or thoughts of . Progress Toward Goals/Plan:: Pt has made progress towards her tx goals AEB her self-report of improved mood and overall better functioning. Pt denies hopelessness, worthlessness, and reports her panic attacks have decreased. Pt is looking forward to hiking the [facility] and feels ready to discharge from IOP next week. Since is traveling for three months, pt would like to wait to find a therapist and psychiatrist. Pt was able to get a 90 prescription for her current medication. Pt will continue IOP tx to promote mood stability and reinforce healthy coping skills. Time Stopped:: 12:45
--- NOTE | 2022-07-24 09:05 | BH.SGPN.GN ---
Behaviors/Verbalizations/Mental Status: []Eye contact fair to good, casually dressed, motor activity appropriate, speech normal rate and tone, mood dysthymic and anxious, congruent affect, thoughts linear and intact, no evidence of delusions or hallucinations. Reviewed pt's symptom tracker, pt suicidal ideation reported within baseline, denies plan, or intent as of this date. Future oriented. Client Response/Progress/Benefit: [] Pt responded well to session, attentive and willing to process with group. Pt reported ?this was a harder week? however still did well to identify wins, which included communicating with her sister despite a recent argument. Shared feeling glad for doing so as they will not be able to see one another for a while due to both traveling. Additional win identified as using mindfulness skills and deep breathing to manage stressor of her medications running out. Reports this as her stressor as well and noted wanting to speak with staff about getting a refill, which therapist assured pt would occur following group. Appeared to benefit from supportive feedback and encouragement provided by the group. Progress noted in continued reports of improved mood management, opposite action to prevent anxious avoidance, and ongoing skill application. Recommended continued IOP tx to promote consistent use of healthy skills, encourage continued thought challenging, as well as prevent decompensation. Narrative Note: []
--- NOTE | 2022-07-24 10:10 | BH.SGPN.GN ---
Behaviors/Verbalizations/Mental Status: [] Eye contact is good. Motor activity is appropriate. Appearance is casual. Speech is Appropriate. Mood is anxious. Affect is congruent. Thoughts are linear and logical. No evidence of psychosis. Client Response/Progress/Benefit: [] Pt was an active participant in group discussions. Attentive during psychoeducation and participated in experiential activity. Participated during interactive discussion on how emotions can negatively impact how we communicate. Pt along with peers identified that intense emotions can impact one's ability to focus, cause one to shut down, lead to word vomit, cause cognitive distortions (Catastrophizing, Minimizing, mind-reading), and can impact one's ability to comprehend. Pt participated during interactive discussion on the importance of communicating one's emotions to others which can prevent blow-ups, help one get their needs met, help others better understand our emotions/concerns/stressors, can build trust with others, and can help us advocate for ourselves. Able to identify and elaborate on the connections between experiential activity and group topic. Benefited from increased awareness of how emotions can impact communication. Will continue in IOP to stabilize mood, prevent decompensation, provide support, and decrease intrusive thoughts. Narrative Note: []
--- NOTE | 2022-07-26 09:05 | BH.SGPN.GN ---
Behaviors/Verbalizations/Mental Status: []Pt alert and oriented, neatly dressed and groomed. Eye contact good. Motor activity appropriate. Speech within normal limits. Affect congruent, mood euthymic. Thoughts linear, logical, no signs of hallucinations or delusions. Reviewed pt?s symptom tracker, no risk for suicidal ideation, plan, or intent as of 07/26/22 Client Response/Progress/Benefit: []Pt responded well to session, attentive and engaged. Pt reports feeling grateful this morning as pt's sister and friend did something thoughtful for pt and it helped pt realize people really do care for me. Pt is anxious about leaving for her trip this week mostly because she is worried about her family. Pt shared concerns that he family will struggle financially without her and they will not know how to manage the house. Pt is able to challenge this perspective and pt often reminds herself that I'm not special they will be okay. Pt has been using self-talk and sitting with the uncomfortable to manage expectations of self which pt appears to benefit from. Pt will continue IOP tx for this week to reinforce healthy coping skills and prepare for her trip. Narrative Note: []
--- NOTE | 2022-07-26 10:10 | BH.SGPN.GN ---
Behaviors/Verbalizations/Mental Status: [] Eye contact is good. Motor activity is appropriate. Appearance is casual. Speech is Appropriate. Mood is euthymic. Affect is full. Thoughts are linear and logical. No evidence of psychosis. Client Response/Progress/Benefit: [] Pt participated at times during group discussions. Attentive during psychoeducation. Participated along with peers on working to define locus of control and provide examples of internal and external locus of control. Active and engaged during experiential activity and was able to see correlations between activity and emotions/perspectives associated with internal vs external locus of control. Pt shared that her locus of control is typically internal b/c she feels guilty, anxious, and responsible for everything that happens to me and others. Benefited from increased insight and awareness of internal vs external locus of control and how this could impact mental health. Will continue in IOP to maintain gains and increase healthy coping skills. Narrative Note: []
--- NOTE | 2022-07-26 15:00 | BH.SGPN.GN ---
Behaviors/Verbalizations/Mental Status: []Client alert and oriented, casually dressed and groomed. Eye contact good. Motor activity appropriate. Speech within normal limits. Affect congruent, mood euthymic. Thoughts linear, logical, no signs of hallucinations or delusions. Client Response/Progress/Benefit: []Client responded well to session, actively engaged during psychoeducation on circles of control including areas in which we have control, some influence, or concern but no control over in daily life. Client completed a worksheet where group members identified what aspects of a current stressor they may have some control or influence over. Client indicated wanting to work on the stressor of her relationship with friends and family. Shared having influence over the amount of time spent with them and control over her actions and words when interacting with them. Group then worked together on identifying steps to begin using an internal locus of control when addressing current stressors. Client identified plans to remind herself of her right to advocate for her own needs and communicate those needs with supports. Client will continue IOP tx to improve consistent skill application and healthy boundary setting, maintain mood stability, and prevent decompensation. Narrative Note: []
--- NOTE | 2022-07-28 09:03 | BH.IGGP_ITS ---
Aftercare Plan - Demographics Treatment End Date:: 07/28/22 Psychiatrist:: Trinh Abel Psychiatrist Office #:: [id number] [facility] Therapist:: Britney Santacruz Therapist Phone #:: [phone] - Plan Details Progress/Aftercare Plan Details:: Elba has responded well to treatment as evidenced by Elba consistently attending IOP sessions and her reduction of DSM-5 scores since admission. Elba was always attentive and receptive to learning during group and individual sessions. Elba actively applied coping skills outside of IOP and reports overall her mood is improved and she is functioning better than she was several months ago. Elba was consistent with her goals and receptive to learning. Elba?s overall symptom reduction is 35% since admission with depression decreasing by 43%, anxiety decreasing by 22%, intrusive thinking decreasing by 25%, and alcohol use decreasing by 100%. Elba has increased self-confidence in her ability to manage anxiety, depression, and negative thinking. Strategies for Success:: 1. Opposite action! Continue to challenge yourself to not let anxiety or depression drive your bus. 2. Set small goals each day and break down bigger stressors. 3. Continue to ask for help and advocate for yourself. 4. Challenge distorted thoughts. Remember that something can be overwhelming AND you can cope with it. 5. Keep challenging yourself to reach out to people (both old and new supports). 6. Self-care! this means the fun and not so fun stuff. 7. Keep using your calming skills when anxious. 8. Remember that you are important, but, you are not special. People will figure things out if they have to. It's not your job to keep everyone together. 9. Give yourself credit and write them down! 10. Continue working on sitting with the uncomfortable! 11. Be creative! - Appointments Appointments/Referrals to Other Services:: Please call [facility] after returning from the trail and we will provide resources for outpatient counseling and psychiatry. - Medications Home Medications: Home Medications venlafaxine 37.5 mg capsule,extended release 24 hr (Effexor XR) 37.5 mg PO DAILY 30 days #90 caps 07/19/22
--- NOTE | 2022-07-28 09:05 | BH.SGPN.GN ---
Behaviors/Verbalizations/Mental Status: []Pt alert and oriented, casually dressed and groomed. Eye contact good. Motor activity appropriate. Speech within normal limits. Affect congruent, mood euthymic. Thoughts linear, logical, no signs of hallucinations or delusions. Reviewed pt?s symptom tracker, no risk for suicidal ideation, plan, or intent as of 07/28/22 Client Response/Progress/Benefit: []Pt responded well to session, attentive and engaged. Pt reports feeling excited as today is her last IOP tx day and pt is getting ready to leave for her long hike. Pt shared she is also anxious, but pt knows she is prepared. Pt stated the biggest progress she sees since admission is the positive impact medication has had on her thoughts. Pt shared she was reluctant to try medication again, but pt notices her thought patterns are less circular and negative. Pt has also seen growth in her communication skills with supports and ability to combat her perspective. Pt will discharge from IOP tx today as pt has accomplished her tx goals and no longer meets criteria for IOP. Narrative Note: []
--- NOTE | 2022-07-28 10:13 | BH.SGPN.GN ---
Behaviors/Verbalizations/Mental Status: []Eye contact is good. Motor activity is appropriate. Appearance is casual. Speech is Appropriate. Mood is euthymic. Affect is congruent. Thoughts are linear and logical. No evidence of psychosis. Client Response/Progress/Benefit: []Pt was an active participant in group discussions and activities. Pt engaged during interactive discussion in which the group defined self-care and discussed its benefits. Worked with group to identify myths related to self-care which included; self-care is selfish, don?t feel they deserve self-care/must be earned, self-care means a person is weak, and self-care takes up too much time. Pt participated in small groups where they worked to bust these self-care myths. Benefited from increased awareness of self-care, its benefits, and the consequences of not utilizing self-care strategies. Pt made a lot of connections in group sharing ?self-care is difficult for her as it feels like she is being selfish and she has been taught that it is weak.? Will d/c from IOP and continue in individual outpatient counseling to prevent decompensation, maintain gains, and promote functioning.? Narrative Note: []
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
--- NOTE | 2022-07-28 11:10 | BH.SGPN.GN ---
Behaviors/Verbalizations/Mental Status: []Pt alert and oriented, casually dressed and groomed. Eye contact good. Motor activity appropriate. Speech within normal limits. Affect congruent, mood euthymic. Thoughts linear, logical, no signs of hallucinations or delusions. Client Response/Progress/Benefit: []Pt engaged participant AEB completing self-assessment worksheet and providing input throughout discussion. Participated in group discussion on the various areas of self-care. Pt completed worksheet identifying current self-care practices and what self-care activities pt wants to start using. Pt selected emotional self-care to begin practicing more consistently. Pt plans to do this by doing yoga and journaling which will help her stay grounded and in the moment. Appeared to benefit from completing the self-care evaluation and gaining insights into current self-care practices, as well as identifying areas in which pt would like to improve upon.?Pt has made significant treatment progress and will discharge from [facility] today.
== END 2022-07-28 12:30 | disposition home or self-care (01) ==
LOC: BHIOP 06:48
PROVIDERS: PCP Pediatrics; Referring Provider Psychiatry & Neurology Psychiatry; Visit Provider Psychiatry & Neurology Psychiatry
DX: F33.2 Major depressive disorder, recurrent severe without psychotic features (principal); F43.10 Post-traumatic stress disorder, unspecified; F41.1 Generalized anxiety disorder; F41.8 Other specified anxiety disorders; F10.90 Alcohol use, unspecified, uncomplicated; Z79.899 Other long term (current) drug therapy
CPT/HCPCS: 99214; H2012; H2020; S9480; 90834

== ENCOUNTER 2023-05-29 08:00 | Outpatient (RCR) | payer MEDICAID, SELFPAY ==
--- NOTE | 2023-05-29 09:10 | BH.SGPN.GN ---
Behaviors/Verbalizations/Mental Status: [] Pt alert and oriented, casually dressed, grooming disheveled. Eye contact fair to good. Motor activity appropriate. Speech within normal limits, soft. Affect congruent, mood depressed. Thoughts linear, logical, no signs of hallucinations or delusions. Reviewed pt?s symptom tracker, no risk for suicidal ideation, plan, or intent 05/29/23 Client Response/Progress/Benefit: []Pt responded well to session, participating in processing and receptive of supportive feedback. Pt first day in IOP tx and she reports feeling anxious this morning as a result. Pt shared that she has been struggling with depression and irritability for the past few months. Pt has previously been in the IOP program and discussed struggling with feelings of shame and embarrassment regarding her need to return to intensive treatment. Reported struggling to step outside her comfort zone and talk about her feelings but she recognizes that she will not be able to make as much progress if she does not challenge herself to do so. Pt appeared to benefit from group support. Pt will continue IOP tx to promote mood stability, improve understand and application of behavior activation skills, and improve daily functioning. Narrative Note: []
--- NOTE | 2023-05-29 10:10 | BH.SGPN.GN ---
Behaviors/Verbalizations/Mental Status: []Pt alert and oriented, casually dressed and fairly groomed. Eye contact fair. Motor activity appropriate. Speech within normal limits. Affect constricted, mood depressed. Thoughts linear, logical, no signs of hallucinations or delusions. Client Response/Progress/Benefit: [] Pt was an active participant in group discussions. Attentive during psychoeducation. Contributed during interactive discussions in which peers attempted to define crisis . Pt identified examples of potential crisis. Group also worked together to identify unhealthy responses to crisis which included; isolation, self-harm, substance abuse, avoidance, and distraction. Pt identified personal warning signs as isolation, lack of self-care, and rapid mood changes. Benefited from increased understanding of crisis and awareness of personal responses to crisis. Pt will continue IOP tx to increase healthy coping skills, challenge negative/distorted thoughts, and prevent decompensation.
--- NOTE | 2023-05-29 11:10 | BH.SGPN.GN ---
Behaviors/Verbalizations/Mental Status: [] Eye contact is fair. Motor activity is appropriate. Appearance is casual. Speech is Appropriate. Mood is depressed. Affect is constricted. Thoughts are linear and logical. No evidence of psychosis. Client Response/Progress/Benefit: [] Pt was an active participant in group discussions. Attentive during psychoeducation. In small group pt along with peers developed an active plan for their crisis warning signs. Pt identified three crisis warning signs as well as an action plan for each. One crisis warning sign is isolation with an action plan that involved: writing, meditating, opposite action, change environment, ask for help, and schedule hangouts. Other warning sign was lack of self-care with an action plan that involved: checklist of self-care, reward system, prioritizing self-care activities, timers, and combining with care for others. Benefited from increased awareness of crisis warning signs and by developing crisis intervention strategies. Will continue in IOP to stabilize mood, challenge distortions, and prevent decompensation.
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
--- NOTE | 2023-05-29 11:37 | BH.MTP ---
Master Treatment Plan Patient Information Program Physician:: Dr. Trinh Rock Primary Therapist:: Britney SMALL Psychiatric Diagnoses Psychiatric Diagnoses:: Major depressive disorder, recurrent, severe without psychosis F 33.2; Generalized anxiety disorder; Social anxiety disorder; PTSD; Alcohol use disorder with full remission since January 2023; History of anorexia with purging by emesis; Avoidant and cluster B traits Diagnosis Code(s):: F 33.2 Estimated LOS Estimated LOS (in weeks):: 6 Problem/Goal #1 Problem/Goal #1 Stated Goal:: Pt will reduce depressive symptoms, negative self-talk, thoughts of , hopelessness, and irritability due to Major Depressive Disorder through [facility] Services. Description of Barriers: Pt has many negative core beliefs that impact pt's ability to ask for help, set boundaries, and practice self-compassion. Pt has history of trauma, social anxiety, eating disorder, and alcohol use disorder. Functional Impact: Pt is a 22-year-old single, female with a history of depression, PTSD and anxiety who referred herself back to the [facility] due to worsening symptoms of depression and anxiety in the past few months. Pt discontinued her Effexor for 2 months and her moods became erratic and she noticed sadness, worthlessness, and was feeling like a burden. She is having crying episodes with occasional hopelessness and guilt. She is working 3 jobs and out to keep myself busy . She is sleeping 9 or 10 hours a night and her appetite is somewhat decreased. Pt is finding it hard to accomplish her ADLs but is able to function at work. She admits to passive thoughts of but denies current suicidal ideation. She most recently had suicidal ideation which was passive about 1 week ago and she thought of plans to overdose or cut herself but had no definite plan and states that she does not want to kill herself. She has no access to any weapons. Pt has been having panic attacks, but less recently. Pt?s symptoms are currently impacting her occupational, social, and familial functioning. Goal Relevant Strengths/Supports: Pt has a lot of supports in her life including her boyfriend, siblings, [facility] staff, and her outpatient therapist. Pt just started EMDR at [facility] and pt is back on medication that has helped pt in the past. Pt has a lot of hobbies and interests. Objectives Objective #1: Stated Objective: Pt will learn and utilize 2-3 healthy coping strategies to better manage depressive symptoms and reduce DSM-5 symptoms for depression, anger, and SI. Interventions: Through group and individual sessions, therapist will help pt identify triggers and warning signs of depression and emotional dysregulation including emotional, physical, and behavioral changes. Therapist will teach pt various coping skills to manage her symptoms. Therapist will use cognitive restructuring techniques and help pt gain awareness of negative thoughts that reinforce depressive cycles. Therapist will help pt incorporate mindfulness and emotional regulation skills when dealing with difficult situations. Discharge Criteria: Pt will have met this goal when she can report learning and using at least 2 coping skills to manage depressive symptoms and her DSM-5 scores for depression, anger, and SI have decreased. Target Date: 07/10/23 Review Date: 06/19/23 Status: open Objective #2: Stated Objective: Pt will identify at least 2-3 negative self-talk messages used to reinforce negative core beliefs, worthlessness, and isolation and replace thoughts with balanced, realistic messages. Interventions: Therapist will help pt identify distorted, negative beliefs about self and replace with more realistic, affirmative messages. Therapist will use CBT and DBT to help pt increase insight to the connection between thoughts, emotions, and behaviors. Therapist will encourage pt to practice thought challenging. Discharge Criteria: Pt will have achieved this goal when can verbalize at least 2 cognitive distortions and effectively replace those thoughts with affirmative messages. Target Date: 07/10/23 Review Date: 06/19/23 Status: open Problem/Goal #2 Problem/Goal #2 Stated Goal:: Will reduce anxiety, panic, and PTSD symptoms through increasing emotional regulation and distress tolerance skills. Description of Barriers: Pt has many negative core beliefs that impact pt's ability to ask for help, set boundaries, and practice self-compassion. Pt has history of trauma, social anxiety, eating disorder, and alcohol use disorder. Functional Impact: Pt is a 22-year-old single, female with a history of depression, PTSD and anxiety who referred herself back to the [facility] due to worsening symptoms of depression and anxiety in the past few months. Pt discontinued her Effexor for 2 months and her moods became erratic and she noticed sadness, worthlessness, and was feeling like a burden. She is having crying episodes with occasional hopelessness and guilt. She is working 3 jobs and out to keep myself busy . She is sleeping 9 or 10 hours a night and her appetite is somewhat decreased. Pt is finding it hard to accomplish her ADLs but is able to function at work. She admits to passive thoughts of but denies current suicidal ideation. She most recently had suicidal ideation which was passive about 1 week ago and she thought of plans to overdose or cut herself but had no definite plan and states that she does not want to kill herself. She has no access to any weapons. Pt has been having panic attacks, but less recently. Pt?s symptoms are currently impacting her occupational, social, and familial functioning. Goal Relevant Strengths/Supports: Pt has a lot of supports in her life including her boyfriend, siblings, [facility] staff, and her outpatient therapist. Pt just started EMDR at [facility] and pt is back on medication that has helped pt in the past. Pt has a lot of hobbies and interests. Objectives Objective #1: Stated Objective: Pt will identify 2-3 anxiety and PTSD triggers and 2 coping skills to use when feeling anxious or irritable to manage anxiety as shown by reducing DSM-5 scores for anxiety. Interventions: Therapist will provide education on anxiety, avoidance behaviors, and maintenance cycles. Therapist will help pt explore personal symptoms and warning signs of anxiety and PTSD. Therapist will teach pt coping skills to improve emotional regulation, mindfulness, and distress tolerance to help pt cope with anxiety in the moment. Discharge Criteria: Pt will have accomplished this goal when she can identify at least 2 triggers and report using 2 coping skills to manage anxiety and PTSD. Additionally, pt will have accomplished this goal AEB reduction of DSM-5 scores for anxiety. Target Date: 07/10/23 Review Date: 06/19/23 Status: open Objective #2: Stated Objective: pt will identify 2-3 cognitive distortions that lead to rumination and learn 2-3 ways to manage these thoughts to better manage anxiety. Interventions: Therapist will provide education on the most common cognitive distortions and teach pt the connection between thoughts, emotions, and feelings. Therapist will assist pt in identifying, challenging, and replacing dysfunctional thoughts with positive, more realistic thoughts. Therapist will use CBT and DBT techniques to help pt gain awareness of thinking errors and learn how to more effectively handle negative thoughts. Discharge Criteria: Pt will have accomplished this goal when can identify at least 2 cognitive distortions and at least 2 coping skills to manage negative thoughts. Target Date: 07/10/23 Review Date: 06/19/23 Status: open
--- NOTE | 2023-05-29 11:37 | BH.COMM ---
Communication Note Communication with Client Communication Note: Met with pt to complete initial paperwork and administer the CSSR-S screening and risk assessment. Pt is high risk per the CSSR-S as pt reports having thoughts of killing herself within the past month, but denies any active suicidal ideations today. Pt shared when she had the thoughts she reached out to her sister and was almost taken to the hospital, but pt?s sister helped pt calm down. Pt shared she has not felt that way in years and this scared pt. Pt shared having passive suicidal ideations today and pt can control these thoughts. Pt has history of one previous suicide attempt via overdose on Zoloft which resulted in hospitalization when pt was 19. Pt denies any self-harm currently. Pt reports ability to maintain safety and pt denies access to any weapons. Pt has numerous protective factors including her family, reasons for living, and her boyfriend. Discussed case with Dr. Abel and pt will be admitted to [facility] tx with a diagnosis of MDD, recurrent, severe, without psychosis F33.2
--- NOTE | 2023-05-30 09:00 | BH.NA ---
Physical Data Vital Signs Pulse Rate: 75 Blood Pressure: 138/79 Height/Weight Height: 1.68 m Weight:: 58.967 kg Weight in Pounds: 130.0 lbs Current Medication Compliance Medication Compliance Do you take your medication as prescribed?: Yes Nutritional History Appetite Nutritional Instructions: Describe your appetite:: Fair Additional nutritional information:: Client has a history of anorexia and some purging. Client states her appetite was good [place] [facility], but states the last few months she has had a low appetite and is not eating very much. Client denies purging. Functional Assessment Sleep Pattern Describe any problems with sleeping: Client states her sleep varies from no sleep to up to 15 hours per day. Activities Motor Activity:: Functional Sensory/Communication Assess Communication Problems Do you have difficulty understanding what people are saying?: No Medical Problems/History Pain Assessment Do you have acute or chronic pain?: No Surgical History Surgical History Have you had any surgeries? If so, list type and date:: No Substance Abuse Substance Abuse Please describe substance abuse in the last 30 days:: Client denies current alcohol use, states alcohol use in the past. Client states she vapes nicotine and has off and on for 4-5 years. Client states she has used marijuana in the past, but denies current use. Client states she currently drinks 4-5 cups of coffee per day. Mental Status Summary Mental Status Significant Findings/Observations on Appearance and Mood:: Client is alert and oriented x 4. Client is casually groomed. Client is cooperative with assessment. Client makes good eye contact. Client's voice has normal rate and volume. Client has appropriate affect. Client makes logical associations and has normal processing. Client denies delusions/hallucinations. Client reports last week, she has some SI with some thoughts of methods, but states at this time she has some passive thoughts of without intent or plan. Suicide Assessment Suicidal Ideation Are you currently or have you been suicidal in the past?: Yes Suicidal Intentional Rating Scale (SIRS): Suicidal thoughts (past) Physician Notification Past Psychiatric History MH Treatment Hx Past Psychiatric Medications:: Trazodone and Zoloft in the past, currently on Effexor Age of first mental health symptoms: Client states she was first depressed around age 9. Client was diagnosed with anorexia around age 19. Describe (age, circumstance, etc) any past hospitalizations: At age 18, client was hospitalized at [facility] for depression. At age 19, the client was hospitalized at [place] after a suicide attempt by overdose of Zoloft. Current providers for mental health treatment (counselor, psychiatrist, shelter case manager, etc.): Client established counseling at [facility] recently, and has gone to [facility] once for psychiatry. Fall Risk Assessment Age Age: Less than 60 Mental Status Mental Status: Willing & able to ask for assistance when needed Physical Status Physical Status: No problems Impairments Impairments: None Elimination Elimination: Continent AND independent Gait or Balance Gait or Balance: Walks independently Hx of Falls History of falls in the past 6 months: No known history Medications/Substances Psychotropics:: Antidepressants Medications/substances used within the past 24 hours or ordered to administer: 1-2 of the medications/substances listed above Total Score Total Points:: 1 RN Summary of Impressions Impressions Recommendations Impressions: Psychiatric Issues: 1. Major depressive disorder, recurrent, severe without psychosis 2. Generalized anxiety disorder 3. Social anxiety disorder 4. PTSD 5. Alcohol use disorder with full remission since January 2023 6. History of anorexia with purging by emesis 7. Avoidant and cluster B traits Level of Care How do the client's current symptoms and functional deficits support need for this level of care?: Client attended this [facility] in July of 2022, and returns at this time due to increased depression symptoms. Client hiked the [facility] after the last time she was here in [facility] and returned to the area in December 2022. Client states her depression has gotten worse since returning home. Client had stopped her Effexor a couple of months ago, and recently restarted it about 2 weeks ago. Client reports crying episodes, negative intrusive thoughts, mood instability, and decreased appetite. Client states about a week ago she has some suicidal thoughts with thoughts of methods that scared her. Client states at this time, she has some passive thoughts of but denies active SI. [facility] will promote gains and prevent further decompensation while providing social support and skills training.
--- NOTE | 2023-05-30 09:05 | BH.SGPN.GN ---
Behaviors/Verbalizations/Mental Status: [Patient was alert and oriented, appropriately dressed and groomed. Eye contact was good, motor activity normal, speech within normal limits. Affect congruent, mood content. Thoughts linear, logical, no signs of hallucinations or delusions. Reviewed Patients symptom tracker and the patient reports moderate/severe in depressed mood, moderate in thoughts of suicide, low/moderate in anxiety/panic attacks, and low in agitation/irritability/anger. Patient does not report symptoms of risk of suicide. Patient will be checked in with to ensure safety.] Client Response/Progress/Benefit: [Patient was engaged and open to the discussion. Patient reported her mood to be ?wobbly?. When further asked about her emotion, she just stated that she felt everything was moving and that it is ?probably all in her head?. Patients first win was that she attempted to set a boundary with someone, but it failed. It?s a win for her though because she attempted to do it in general. Patients second win was that she watched a movie and ate dinner with her sister although she did not want to. The patient stated she knew it would help her, so she did it anyways and it worked. Patients stressor is that she has a lot of house maintenance she needs to catch up on but that it is overwhelming. Patient was interactive and respectful with other group members about their mental wins and stressors. Patient benefited from the discussion by listening to feedback and giving input on her peer?s stressors and mental health wins. Patient will continue with IOP treatment to help develop healthy skills, promote mood stability, and improve distress tolerance. ] Narrative Note: []
[2023-05-30 09:18] VITALS: BP 138/79; PULSE 75
--- NOTE | 2023-05-30 11:15 | BH.SGPN.GN ---
Behaviors/Verbalizations/Mental Status: []Pt alert and oriented, casually dressed and groomed. Eye contact fair to good. Motor activity appropriate. Speech within normal limits. Affect constricted, mood agitated and depressed. Thoughts linear, logical, no signs of hallucinations or delusions. Client Response/Progress/Benefit: [] Pt responded well to session AEB taking notes and contributing to discussion throughout. Pt engaged as group continued discussion on acceptance and the mental health benefits of practicing acceptance. Pt and peers identified what makes acceptance challenging and pt completed a self-reflection exercise on what is hard to accept in pt's life. Pt completed the reflected, but she chose not to share with pilot manager. Pt reports she is struggling with a lot right now and is not ready to communicate this in a group setting. Pt appeared to benefit from gaining insight and learning strategies to increase acceptance. Pt will continue IOP tx to prevent decompensation, improve daily functioning, and reduce irritability. ?? Narrative Note: []
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
--- NOTE | 2023-05-30 12:46 | BH.DR.ITP ---
Initial Treatment Plan Patient Information Visit Information: ADMISSION DATE: EXPECTED LOS: 4-6 weeks Problems/Symptoms Problem #1:: Depression Symptom:: Sadness, worthlessness, passive thoughts of , decreased concentration, biological disruption of appetite and sleep, hopelessness, recent passive suicidal ideation Problem #2:: Anxiety Symptom:: Worry, rumination, panic attacks
--- NOTE | 2023-05-31 09:05 | BH.SGPN.GN ---
Behaviors/Verbalizations/Mental Status: [] Eye contact is good. Motor activity is appropriate. Appearance is casual. Speech is Appropriate. Mood is depressed. Affect is congruent. Thoughts are linear and logical. No evidence of psychosis. Reviewed daily check in sheet and no reports of suicidal ideations or intent. Client Response/Progress/Benefit: [] Pt participated when prompted. Attentive. Daily symptom tacker notes 4/5 for anxiety and 3/5 for depression. Also reports 1/5 for self-harm urges. Shared with the group that she was struggling yesterday with her emotions. Elaborated on her thoughts and stressors which led to panic attack. Able to process struggles and develop a strategy yesterday with program therapist. I just went home and focused on one thing which was taking a shower . Once she completed that she was able to go to work and then work on cleaning the house with her siblings. Ruminating on the fact that she is exhausted today for no reason. Group was able to offer feedback that panic attacks, anxiety, stress, worry, and starting IOP can all lead to feelings of being exhausted which appear to be beneficial. Also benefited from group support and encouragement. Will continue in IOP to maintain safety, stabilize mood, increase healthy coping, and improve functioning. Narrative Note: []
--- NOTE | 2023-05-31 10:15 | BH.SGPN.GN ---
Behaviors/Verbalizations/Mental Status: []Client alert and oriented, casually dressed and groomed. Eye contact good. Motor activity appropriate. Speech within normal limits. Affect constricted, mood depressed and anxious. Thoughts linear, logical, no signs of hallucinations or delusions. Client Response/Progress/Benefit: []Pt engaged in session AEB listening attentively to others and providing insight when prompted to group discussion. Pt engaged in activity, able to connect how it can be uncomfortable and difficult to accept when things are out of one?s own control. Pt worked with group to identify what things in life can be hard to accept. Group identified things hard to accept as: , body image, loss of relationship, mental health diagnosis, other?s behaviors, and past decisions. Pt worked on identifying what personal things are hard to accept for themself, sharing struggling with her mental health is something pt struggles with accepting. Pt seemed to benefit from increased awareness of importance of acceptance. Pt to continue IOP to improve mood stability, increase application of behavior activation skills, and prevent decompensation. Narrative Note: []
--- NOTE | 2023-05-31 10:20 | BH.SGPN.GN ---
Behaviors/Verbalizations/Mental Status: []Pt alert and oriented, neatly dressed and groomed. Eye contact good. Motor activity appropriate. Speech within normal limits. Affect congruent, mood anxious and depressed. Thoughts linear, logical, no signs of hallucinations or delusions. Client Response/Progress/Benefit: [] Client connected with topic of Anxiety and participated throughout, providing input and taking notes. Participated throughout interactive discussion defining anxiety and identifying cognitive and physiological symptoms of anxiety. Group discussed how anxiety can prevent them from trying new things. Common physical and cognitive symptoms identified by group included: ?what if thoughts?, ?fear of failure?, negative self-talk, increased heart rate, restlessness, and getting sick more frequently. Pt was quiet throughout session, but taking notes and shared about the importance of anxiety. ?Benefited from increased awareness and insight on anxiety and its impact. Pt will continue IOP tx to prevent decompensation, improve daily functioning, and combat distorted thinking patterns. Narrative Note: []
--- NOTE | 2023-05-31 11:15 | BH.SGPN.GN ---
Behaviors/Verbalizations/Mental Status: []Pt alert and oriented, causal appearance. Eye contact fair. Motor activity appropriate. Speech within normal limits. Affect constricted, mood dysthymic. Thoughts linear, logical, no signs of hallucinations or delusions. Client Response/Progress/Benefit: [] Pt was an active participant AEB pt providing input and listening attentively to peers. Attentive during psychoeducation on mindfulness coping skills and their impact on reducing anxiety and improving overall mental health wellness. Group was able to identify self-soothing and mind-based coping skills which included: 5-senses, meditation, deep breathing, journaling, and progressive muscle relaxation. Pt also participated with peers in practicing mindfulness skills in session. Pt would like to work on humming and meditation. Appeared to benefit from increasing repertoire of anxiety reduction skills. Pt will continue in IOP tx to challenge distortion thoughts, increase healthy coping skills, and prevent decompensation.
--- NOTE | 2023-05-31 15:48 | BH.MDN ---
Multi-Disciplinary Note Note 60-min Individual: Time Started:: 12:20 Date: 05/31/23 Purpose of session/treatment goals addressed:: To gather information on pt's current symptoms, stressors, and triggers. Another goal was to identify treatment goals and begin to combat distorted thinking patterns. Eye Contact:: Good Motor Activity:: Appropriate Appearance:: Neat and Casual Speech:: Appropriate Mood:: Euthymic, Anxious and Depressed Affect:: Full Thoughts:: Other (distorted ) and No evidence of hallucinations/delusions noted Staff Interventions:: thought challenging, psychoeducation on: (core beliefs), CBT techniques, strengths perspective, treatment planning, goal setting and taught coping skills Client Response:: Pt responded well to session, open to meeting with therapist. Pt reports feeling less overwhelmed today and she accomplished her goals from yesterday. Pt took a shower, did the dishes, and helped her friend for work. Pt also was pleased that her family helped her clean up after dinner and pt did not feel guilty about this. Pt was worried that if her siblings had to help with household tasks, they would be annoyed. Pt shared that she has a lot of negative thinking patterns and including the belief that if people are upset with her it means they hate me and won't talk to me again. Pt reported that earlier today she almost did not come to group because she was running late and pt was worried that [facility] staff was going to be mad at pt. Pt stated this is something she wants to work on while in [facility]. Pt shared she knows she has a lot of all or nothing thinking, but pt has a hard time being kind and understanding to herself. Discussed core beliefs and how these are developed. Pt receptive to thinking about some of her biggest triggers to help pt understand her core beliefs. Pt shared that she struggles a lot when people explain things to pt without asking pt if she needs explanation, when people assume things about pt, when she is not a natural at something, and when pt perceives that people are upset with her. Pt also feels that she is more often triggered by men and pt believes this is due to pt having closer relationships with women throughout her life. Pt understands that to feel less negative towards herself she has to work on being more compassionate and assert her needs. Pt reports this makes her feel very anxious, but pt is willing to try this during sessions. Pt also receptive to playing board games while in session as pt reports this will help pt feel less anxious about talking about vulnerable things. Risks/Concerns:: Pt denies any active SI, plan, or intent as of 05/31/23. Pt is future oriented. Progress Toward Goals/Plan:: Pt's first week of IOP tx and pt reported she benefitted from setting a goal yesterday and accomplishing this goal. No progress to document regarding pt's symptoms. Pt currently endorses mood instability with depression, anxiety, and irritability. Pt endorses crying spells, distorted thought patterns that reinforce depression and anxiety, and lack of energy. Pt receptive to setting goals for IOP and working on challenging her negative core beliefs. Pt will continue IOP tx to prevent decompensation, improve daily functioning, and increase ability to combat negative thinking patterns. Time Stopped:: 13:20
--- NOTE | 2023-06-01 07:27 | BH.MDN ---
Multi-Disciplinary Note Note 60-min Individual: Time Started:: 12:20 Date: 05/31/23 Purpose of session/treatment goals addressed:: Crisis escalation session. Eye Contact:: Fair Motor Activity:: Appropriate (by the end of session) and Restless (at the beginning of session-pacing) Appearance:: Disheveled Speech:: Appropriate Mood:: Anxious, Depressed and Other (panicked ) Affect:: Congruent (tearful at the beginning of session when pt was having a panic attack.) Thoughts:: Racing and No evidence of hallucinations/delusions noted Staff Interventions:: thought challenging, mindfulness skills, rapport building, strengths perspective and other (crisis de-escalation skills) Client Response:: Pt responded well to session, open to meeting with therapist. Pt was found in the hallway by the group room pacing. Pt was tearful and her breathing was becoming heavy and rapid. Pt stated she was having a lot of anxiety and was not sure why. Pt responded well to sitting and breathing. Pt able to calm her breathing and not pace. Pt responded well to talking through her anxiety and it was discovered that pt felt overwhelmed about going home and having so many things to do and I can't do them. Pt stated she needs to shower, do the dishes, school cafeteria head cook, go to work, and help her friend today. Pt feels that she must do all of these things because if she does not then people will hate me and be annoyed with me. Pt shared her depression has been so bad lately that she has not been keeping up with her personal hygiene and she feels overwhelmed by small tasks. Pt also has been feeling very guilty and this is reinforcing distorted thinking patterns such as all or nothing thinking, negative core beliefs, and catastrophizing. Pt admits that she is highly critical of herself and expects herself to take care of everyone. Pt shared if she is unable to meet these expectations she feels like she will not be liked and this is highly devastating to pt. Pt receptive to gentle thought challenging which helped pt see that there is currently no evidence of her family ever being annoyed with her for not completing all the tasks. Pt identified three goals for today that pt felt were realistic and would help pt. These goals were take a shower, do the dishes, and go help her friend. Pt felt better and was smiling by the end of session. Risks/Concerns:: Pt presents at the beginning of session in the middle of a panic attack AEB heavy breathing, tearfulness, and restlessness. Pt responded well to therapist's calming voice and encouragement to sit down. Pt was able to alleviate her panic symptoms and was reported much less anxiety by the end of session. No report of SI and pt is future oriented. Progress Toward Goals/Plan:: Pt's first week of IOP tx and no progress to document. Pt was previously in the program in July of 2022 and found it beneficial which will be a strength in current treatment. Pt currently endorses a depressed mood with crying spells, excessive guilt, ruminations, worthlessness, passive SI, panic attacks, anxiety, racing thoughts, and irritability. Pt met with today due to pt appearing distressed in the hallway and appearing to having a panic attack. Pt left IOP feeling calm and more hopeful per her report. Pt will be met with again tomorrow by this therapist. Pt will continue IOP tx to prevent decompensation, improve daily functioning, and increase ability to combat negative thinking patterns. Time Stopped:: 13:20
--- NOTE | 2023-06-05 09:05 | BH.SGPN.GN ---
Behaviors/Verbalizations/Mental Status: [] Eye contact is good. Motor activity is appropriate. Appearance is disheveled. Speech is Appropriate. Mood is anxious/irritable. Affect is congruent. Thoughts are linear and logical. No evidence of psychosis. Reviewed daily check in sheet and no reports of suicidal ideations or intent. Client Response/Progress/Benefit: [] Pt participated when prompted. Attentive. Able to identify mental health wins which included working on my unrealistic expectations Shared the impact that unrealistic expectations has had on her mental health specifically anxiety, panic attacks, and depression. Gave two examples of utilizing skills to challenge unrealistic expectations over the weekend. I put so much pressure on myself to be perfect . Reports being restless and agitated today. I'm stressed about everything . Also reports difficulty sleeping. Shared several stressors and ruminations which are causing irritability. Struggling to focus due to intrusive thoughts. Limited progress noted. Benefited from group support, encouragement, and feedback. Will continue in IOP to maintain safety, prevent decompensation, and to stabilize mood. Narrative Note: []
--- NOTE | 2023-06-05 10:15 | BH.SGPN.GN ---
Behaviors/Verbalizations/Mental Status: []Eye contact is good. Motor activity is appropriate. Appearance is casual. Speech is Appropriate. Mood is irritable and dysthymic. Affect is congruent. Thoughts are linear and logical. No evidence of psychosis. Client Response/Progress/Benefit: [] Pt was an active participant in group discussions. Attentive during psychoeducation on the communication styles and the obstacles to effective communication. Contributed during interactive discussion on the benefits of communicating effectively which included; having one's needs met, decreases stress and uncertainty, improves relationships, increases trust, and increases understanding of others. Worked well in small group in which pt and peers identified the benefits and disadvantages to the different communication styles. Benefited from increased understanding of communication styles and how these can impact effective communication. Pt reports she ?shuts down completely? when there is any kind of conflict or pt feels strong emotions. Pt states this impacts her relationship with her fianc?. Will continue in IOP to prevent decompensation, improve daily functioning, and increase emotional regulation skills. ?? Narrative Note: []
--- NOTE | 2023-06-05 11:15 | BH.SGPN.GN ---
Behaviors/Verbalizations/Mental Status: []Pt alert and oriented, causally dressed and groomed. Eye contact fair. Motor activity restless. Speech within normal limits. Affect constricted, mood anxious. Thoughts linear, logical, no signs of hallucinations or delusions. Client Response/Progress/Benefit: [] Pt responded well to session AEB Pt listening attentively to others and providing input during group discussion on the pay offs and costs of the different communication styles. Pt able to connect how current communication style impacts mental health. Connected with peers comments about importance of using assertive communication. Pt reported she is starting to realize from group today how uncomfortable she feels about being assertive with others. Pt reported she has difficulty asserting her needs in most areas of life. Pt stated she will start working on this by identifying areas of communication she struggles with and what she is ready to work on. Pt seemed to benefit from increasing awareness of healthy strategies to improve communication. Will continue IOP tx to increase confidence, challenge distortions, and prevent decompensation.
--- NOTE | 2023-06-06 09:05 | BH.SGPN.GN ---
Behaviors/Verbalizations/Mental Status: [Patient was alert and oriented, appropriately dressed and groomed. Eye contact was good, motor activity normal, speech within normal limits. Affect congruent, mood content. Thoughts linear, logical, no signs of hallucinations or delusions. Reviewed Patients symptom tracker and the patient reports depressed mood, anxiety/panic attacks, agitation/irritability/anger, self-harm risk, and thoughts/risk of suicide within normal limits.] Client Response/Progress/Benefit: [Patient was engaged and open to the discussion. Patient reported her mood to be ?irritable?. ?Patients first win was that her and her boyfriend had a good conversation about having communication and stating they want to have a healthy relationship. The second win was that she was able to get herself up early today and shower which has been hard for her. Patients stressor is that she hasn?t been sleeping well and is afraid that it may be her new medication. Patient was interactive and respectful with other group members about their mental wins and stressors. Patient benefited from the discussion by listening to feedback and giving input on her peer?s stressors and mental health wins. Patient will continue with IOP treatment to help develop healthy skills, promote mood stability, and improve distress tolerance. ] Narrative Note: []
--- NOTE | 2023-06-06 10:15 | BH.SGPN.GN ---
Behaviors/Verbalizations/Mental Status: []Patient was alert and oriented, casually dressed and groomed. Eye contact was good, motor activity normal, speech within normal limits. Affect congruent, mood anxious and agitated. Thoughts linear, logical, no signs of hallucinations or delusion Client Response/Progress/Benefit: [] Pt was an active participant in the group discussions AEB providing input and taking notes. Attentive during psychoeducation Goal Setting. Participated during the discussion on common barriers lack of motivation, making excuses, not feeling good enough, and lack of support. Group also identified benefits sense of purpose, improved self-confidence, more motivation for other goals, and improved mental health. Pt reports struggling specifically with barriers of avoiding things when depressed and putting others? needs ahead of her own. Benefited from increased awareness of mental health benefits of goals as well as psychoeducation on SMART goal criteria. Will continue in IOP to increase mood stability, improve ability to combat distortions, and reinforce healthy coping skills. ? Narrative Note: []
--- NOTE | 2023-06-06 11:15 | BH.SGPN.GN ---
Behaviors/Verbalizations/Mental Status: []Pt alert and oriented, neat appearance Eye contact good. Motor activity appropriate. Speech within normal limits. Affect congruent, mood agitated. Thoughts linear, logical, no signs of hallucinations or delusions Client Response/Progress/Benefit: [] Pt was engaged during discussion and willing to complete the worksheet challenging them to develop a personal SMART goal. Pt chose the goal of running a half marathon by August. Pt stated this will give her a sense of accomplishment. Pt declined to share her barriers and solutions. Pt continues to struggle with being vulnerable in group due to fear of judgement, but pt is working on this. Benefited from this group by developing a short-term SMART goal related to mental health. Will continue IOP tx to prevent decompensation, increase self-compassion, and combat distorted thinking patterns. Narrative Note: []
--- NOTE | 2023-06-06 12:31 | PCM.BH.PN_ITS ---
Progress Note Progress Note: History of Present Illness/Interim History: The patient is a 23-year-old single, female with a history of depression, PTSD and anxiety who is seen in follow-up at the [facility] behavioral health IOP. I last saw the patient 1 week ago and at that time her Effexor XR dose was increased to 75 mg p.o. daily. According to the staff the patient complained of some mild agitation and irritability and some difficulty sleeping after increasing her Effexor. The patient states that she was at first after she increased her Effexor XR she was extremely tired for the first few days and for that reason increased her caffeine use to 5 cups a day including late in the day near bedtime. She feels that this may have interfered with her sleep. She states that she feels that her mood is overall better and she feels like she is more functional since increasing the dose of the Effexor. She denies symptoms of danielle or hypomania. No panic attacks. She denies passive thoughts of , suicidal ideation, self-harm thoughts, homicidal ideation, hallucinations or delusions. Current Psychiatric Medications: [] Effexor XR 75 mg p.o. daily (dose increased 1 week ago) Mental Status Examination: [] The patient is a 23-year-old female who appears normal for stated age and is casually dressed and groomed with good hygiene. She has no psychomotor agitation or retardation and is ambulatory with a normal gait. She is cooperative and pleasant during the interview. Eye con tact is fair to good and speech is normal rate and rhythm and fluent with no pressure. Mood is mildly depressed. Affect is constricted. Thought process is goal-directed and organized. Thought content: There is no evidence of passive thoughts of , suicidal ideation, homicidal ideation, plan for suicide, hallucinations or delusions. Patient feels she is improving slowly. Reality testing is intact. Impulsivity is moderate. Judgment is intact. Intelligence is average. Diagnoses: [] 1. Major depressive disorder, recurrent, severe without psychosis 2. Generalized anxiety disorder 3. Social anxiety disorder 4. PTSD 5. Alcohol use disorder with full remission since January 2023 6. History of anorexia with purging by emesis 7. Avoidant and cluster B traits Plan: [] The patient will continue the IOP at [facility] as the structure, support, education and group therapy will hopefully prevent worsening of the patient's symptoms that might require hospitalization. She felt safe during the interview and if it anytime she does not feel safe she will let us know or go to the emergency room. The risk, options, possible complications and side effects of the medications were discussed again with the patient and she understands accepts these. No medication changes were made today. Discussed with the patient that if her symptoms worsen then she should tell the staff and we will have to change the Effexor to something else. She will continue to follow-up with her outpatient providers and I will see the patient in follow-up in 1 to 2 weeks. The patient agrees to decrease her caffeine use that she increased 1 week ago.
--- NOTE | 2023-06-06 15:02 | BH.MDN_ITS ---
Multi-Disciplinary Note Note 60-min Individual: Time Started:: 12:10 Date: 06/06/23 Purpose of session/treatment goals addressed:: To work on goal #1 of pt's tx plan. Another goal was to practice mindfulness skills in the moment to reduce anxiety while discussing vulnerable things. Eye Contact:: Fair Motor Activity:: Appropriate Appearance:: Neat Speech:: Appropriate and Soft Mood:: Anxious, Irritable and Depressed Affect:: Constricted Thoughts:: Linear, Logical and No evidence of hallucinations/delusions noted Staff Interventions:: thought challenging, CBT techniques, mindfulness skills (played cards during session to help pt feel less anxious), rapport building, strengths perspective and goal setting Client Response:: Pt responded well to session, open to meeting with therapist. Pt asked last session if we could play cards during session to help pt feel less anxious while talking about her feelings. Pt responded well to this and was able to talk about some of her triggers and where pt thinks these triggers started. One of pt's biggest stressors and ongoing issues is her lack of self-compassion and negative core beliefs. Pt shared she believes that her needs are not important, if she feels any emotion except happy ones people will hate me and not want to talk to me, and that it is her job to take care of other people's emotions. Pt often feels that it is her responsibility to keep the house clean, although she lives with many of her siblings who would help pt. Pt reported she also does not know what her needs are because she is so focused on keeping other people happy and making sure she is taking care of their needs. Pt reflected on when these beliefs started and pt shared during childhood. Pt shared her family grew up poor, but I was my parents favorite for whatever reason so they put money into letting pt do ballet. Pt stated they let pt do very expensive ballet classes in [place], but when her siblings wanted to do something, they were told no. Pt shared her brothers became resentful towards pt and bullied pt heavily until pt gave up ballet in high school. Pt stated so see there's lots of evidence that if I do what I want people will hate me. Pt receptive to challenging this and recognizing that it was not pt's fault or responsibility to take care of her siblings needs, it was her parents. Pt also reflected that her belief that she is responsible for others' emotions is from being hyper-focused on being good at home so her parents would be happy and meet the children's basic needs. Pt is currently in a secure, healthy relationship that is testing some of pt's negative core beliefs, but pt is willing to change these so she can stay in a healthy relationship. Pt's homework is to reflect on her needs. Risks/Concerns:: Pt denies any active SI, plan, or intent as of 06/06/23. Pt's daily symptom tracker is a 1/5 for thoughts of suicide and 0/5 for risk which pt reports is within her baseline. Progress Toward Goals/Plan:: Pt reports benefitting from IOP as the structure, support, and routine gives pt more motivation to shower and be social. Pt's symptoms remain unchanged since admission which is to be expected this early in treatment. Pt reports she has been increasingly irritable, emotionally labile, and pt constantly struggles with negative core beliefs that impact pt's behaviors. Pt receptive to working on self-reflection for homework. Pt will continue IOP tx to prevent decompensation, improve daily functioning, and increase self-compassion. Time Stopped:: 13:10
--- NOTE | 2023-06-07 09:05 | BH.SGPN.GN ---
Behaviors/Verbalizations/Mental Status: []Eye contact is good. Motor activity is appropriate. Appearance is casual. Speech is Appropriate. Mood is calm. Affect is congruent. Thoughts are linear and logical. No evidence of psychosis. Reviewed daily check in sheet and no reports of suicidal ideations or intent. Client Response/Progress/Benefit: []Pt responded well to session, attentive and providing supportive feedback. Pt reports feeling tired this morning, but pt also shared that she got more sleep last night than she has in a while. Pt reported Dr. Abel told pt to cut back on her caffeine intake as pt was consuming probably 2 pots of coffee a day and that helped yesterday. Pt stated she feels less irritable today and less anxious. Pt shared yesterday she took a nap and when she woke up she was anxious about all the things that needed done but pt received help from her siblings and they got chores done. Pt's stressor today is that she feels that she is putting things off such as texting people and responding to emails. Pt receptive to peer feedback and encouragement to utilize self-compassion. Pt appeared to benefit from reflecting on the positives of getting more sleep and changing her caffeine consumption. Pt will continue IOP tx to prevent decompensation, improve daily functioning, and increase self-compassion. Narrative Note: []
--- NOTE | 2023-06-07 10:15 | BH.SGPN.GN ---
Behaviors/Verbalizations/Mental Status: []Pt alert and oriented, casually dressed and groomed. Eye contact good. Motor activity appropriate. Speech within normal limits. Affect congruent, mood anxious and depressed. Thoughts linear, logical, no signs of hallucinations or delusions. Client Response/Progress/Benefit: []Pt was an attentive but passive participant in group discussion and activity. Attentive during psychoeducation. Along with peers, pt was able to identify barriers to taking action in their life. Identified several symptoms and stressors that she feels are holding her back from progress such as negative self-talk, fear of failure, stigma, negative core beliefs, and fear of imperfection. Stated these things have kept pt from making healthy changes, stepping out of her comfort zone, making independent healthy choices, and reinforced self-sabotage. Pt shared that she wants to begin addressing the impact lack of independence has had on her ability to take action. Benefited from increased self-awareness of obstacles. Will continue IOP tx to improve mood management, promote consistent skill application, and further improve self-confidence. Narrative Note: []
--- NOTE | 2023-06-07 11:15 | BH.SGPN.GN ---
Behaviors/Verbalizations/Mental Status: []Pt alert and oriented, casually dressed and groomed. Eye contact good. Motor activity appropriate. Speech within normal limits. Affect constricted, mood anxious and depressed. Thoughts linear, logical, no signs of hallucinations or delusions. Client Response/Progress/Benefit: []Pt responded well to session, taking notes and participating in worksheet discussion. Pt connected with the zones of action/change and that making sustainable change comes from stepping out of one?s comfort zone into the learning zone. Pt set a goal to gain control over her urges to people please/put other's needs before her own. Pt reported plans to challenge herself to start with making a list of 10 things, imagining her life without depending on outside influences, that she wants for her future. Pt identified finding a set time and location and talking to her therapist to help with this goal. Appeared to benefit from identifying a small goal to benefit mental health. Will continue IOP tx to prevent decompensation, reduce the use of unhealthy coping skills, and improve self-confidence. Narrative Note: []
--- NOTE | 2023-06-12 09:05 | BH.SGPN.GN ---
Behaviors/Verbalizations/Mental Status: [] Eye contact is good. Motor activity is appropriate. Appearance is casual. Speech is Appropriate. Mood is anxious. Affect is congurent. Thoughts are linear and logical. No evidence of psychosis. Reviewed daily check in sheet and pt reports 1/5 for suicidal thoughts and 0/5 for intent. Baseline. Client Response/Progress/Benefit: [] Pt was an active participant in group discussion. Attentive during short video on negative automatic thoughts, CBT therapy, and challenging thoughts. Provided appropriate feedback. Daily symptom tracker notes 3/5 for irritability and anxiety. Pt was able to identify several mental health wins. Shared an interaction with support this AM in which she was assertive and verbalized her thoughts/concerns. Elaborated that in the past she would have internalized her concerns which would have led to depression and cognitive distortions. Assertively communicated with support which improved their relationship. Insight how this skills significantly impacted her mental health, her mood, and overall her functioning today. Identified another skills she is working on to minimize mistake beliefs about perfectionism and shared examples. Emotion for today is happy . Stressors include concern for support feeling pressure to help her and manage her emotions . Group challenged these unrealistic expectations which was beneficial. Also benefited from group support, encouragement, and feedback. Progress noted per pt report. Will continue in IOP to maintain safety, increase healthy coping, and increase functioning. Narrative Note: []
--- NOTE | 2023-06-12 10:15 | BH.SGPN.GN ---
Behaviors/Verbalizations/Mental Status: []Eye contact is fair. Alert and oriented. Motor activity is appropriate. Appearance is casual. grooming is appropriate. Speech is Appropriate. Mood is euthymic. Affect is congruent. Thoughts are linear and logical. No evidence of psychosis or hallucinations. Client Response/Progress/Benefit: []Client engaged in group session AEB listening to others, taking notes throughout, and nodding head to others comments. Group attentive during psychoeducation about emotion regulation and dysregulation. Appeared to connect with scenarios reviewed in group on emotion regulation vs dysregulation. Engaged in activity, reporting she realized it's more difficult her to manage emotions when she isn't in control of a situation. Client benefited from session by gaining an increased understanding on the importance of managing emotions. Client to continue IOP to continue use of healthy coping skills, challenge distortions, and prevent decompensation.
--- NOTE | 2023-06-12 11:15 | BH.SGPN.GN ---
Behaviors/Verbalizations/Mental Status: []Pt alert and oriented, casually dressed and groomed. Eye contact fair. Motor activity restless. Speech within normal limits. Affect constricted, mood euthymic. Thoughts linear, logical, no signs of hallucinations or delusions. Client Response/Progress/Benefit: [] Pt engaged in session AEB Pt listening attentively to peers and providing input. Attentive during psychoeducation on 4 zones of regulation. Pt able to identify feelings and behaviors for each zone. Pt identified coping skills one can use to support self in each zone. Identified one skill from each zone she can practice which included: playing upbeat music, goal setting, and breathing. Benefited from increased education on zones of regulation or stages of alertness for emotions and healthy coping skills to use for each zone. Will continue IOP tx to improve confidence, challenge distortions, and prevent decompensation.
--- NOTE | 2023-06-13 09:05 | BH.SGPN.GN ---
Behaviors/Verbalizations/Mental Status: [Patient was alert and oriented, appropriately dressed and groomed. Eye contact was good, motor activity normal, speech within normal limits. Affect congruent, mood content. Thoughts linear, logical, no signs of hallucinations or delusions. Reviewed Patients symptom tracker and the patient reports depressed mood, anxiety/panic attacks, agitation/irritability/anger, self-harm risk, and thoughts/risk of suicide within normal limits.] Client Response/Progress/Benefit: [Patient was engaged and open to the discussion. Patient reported her mood to be ?chill?. Patients first win is that she has continued with her daily facial routine, and it has been helping her mood. Her second win was that she has been practicing self-talk because she has been very down lately. She shared her and her sister went to [employer] yesterday and this also helped her. Patients stressor was that she felt like she had to be a fullerette at her house last night because an argument broke out and it stressed her out although it had nothing to do with her. Patient was interactive and respectful with other group members about their mental wins and stressors. Patient benefited from the discussion by listening to feedback and giving input on her peer?s stressors and mental health wins. Patient will continue with IOP treatment to help develop healthy skills, promote mood stability, and improve distress tolerance. ] Narrative Note: []
--- NOTE | 2023-06-13 10:15 | BH.SGPN.GN ---
Behaviors/Verbalizations/Mental Status: []Pt alert and oriented, disheveled hair, but clothing clean. Eye contact good. Motor activity appropriate. Speech within normal limits. Affect congruent, mood anxious. Thoughts linear, logical, no signs of hallucinations or delusions. Client Response/Progress/Benefit: [] Pt receptive of session, actively engaged throughout AEB taking notes, providing input, and contributing in small group discussion. Appeared to connect with group topic of cognitive distortions and the impact of thought patterns on mental health, coping behaviors, and relationships. Pt connected most with distortions of all or nothing thinking and personalizing. Pt shared she often feels that other people?s needs are her responsibility. Pt able to identify how these distortions impact functioning. Pt appeared to benefit from gaining insight on distorted thinking patterns and how this impacts overall mental health. Will continue IOP tx to promote mood stability, increase self-compassion, and combat all or nothing thinking. Narrative Note: []
--- NOTE | 2023-06-13 15:02 | BH.MDN_ITS ---
Multi-Disciplinary Note Note 60-min Individual: Time Started:: 12:05 Date: 06/13/23 Purpose of session/treatment goals addressed:: To work on goal #1 of pt's tx plan by identifying negative thinking patterns and core beliefs. Eye Contact:: Good Motor Activity:: Appropriate Appearance:: Disheveled (hair unkempt, but clothing looked clean) Speech:: Appropriate Mood:: Anxious Affect:: Congruent Thoughts:: Racing, Circular and No evidence of hallucinations/delusions noted Staff Interventions:: thought challenging, motivational interviewing, psychoeducation on: (trauma responses), CBT techniques and strengths perspective Client Response:: Pt reported she left IOP yesterday feeling a little stressed and anxious, but pt was able to use healthy coping skills to manage her anxiety. Pt stated then her sister and one of their close friends got into an argument and pt felt upset. Pt has awareness that conflict is a big trauma trigger that causes pt to feel anxious and responsible to resolve the conflict. Pt has learned that because of her childhood, pt feels constantly responsible for others' emotions and happiness. Pt shared she got involved in the conflict, but it all worked out and everyone is fine again. Pt also recognized there are other things about their close friend that triggers pt such as the difference in their upbringing. Pt stated her family grew up very poor and there were times they went without food. Pt's friend grew up very wealthy so he does not understand our unspoken rules. These rules pt shared include not eating too much, cleaning up regularly, and making sure everyone is taken care of. Pt reports having cognitive dissonance about these rules and her family dynamic. This is evidenced by pt reporting that want she wants to do is move out and be more independent, but pt becoming very tearful and sharing but I feel like I really can't do that. Pt stated she feels like she needs to stay home with her siblings and be there for them. Pt's negative core beliefs tell pt that her needs are not important and that if she does do things for herself everyone will hate me. Pt receptive to thought challenging and seeing how her being more independent would help her siblings long-term. Pt also receptive to reflecting on the potential benefits of being independent for homework. Risks/Concerns:: No report of SI or thoughts of as of 06/13/23. Progress Toward Goals/Plan:: Pt reports benefitting from IOP as the structure, support, and routine gives pt more motivation to shower and be social. Pt is demonstrating progress with less isolation and improved self-care. Pt is following through with her homework from her report. Pt reports she has been irritable, emotionally labile, and pt constantly struggles with negative core beliefs that impact pt's behaviors. Pt receptive to working on self- reflection for homework. Pt will continue IOP tx to prevent decompensation, improve daily functioning, and increase self-compassion. Time Stopped:: 12:55
== END 2023-06-13 23:59 ==
LOC: BHIOP 08:00
PROVIDERS: PCP Pediatrics; Referring Provider Psychiatry & Neurology Psychiatry; Visit Provider Psychiatry & Neurology Psychiatry
DX: F33.2 Major depressive disorder, recurrent severe without psychotic features (principal); F41.1 Generalized anxiety disorder; F41.8 Other specified anxiety disorders; F43.10 Post-traumatic stress disorder, unspecified; F10.91 Alcohol use, unspecified, in remission; F60.6 Avoidant personality disorder
CPT/HCPCS: 90792; 99213; H2020; S9480; T1002; 90832; 90837

== ENCOUNTER 2023-06-14 07:50 | Outpatient (RCR) | payer MEDICAID, SELFPAY ==
--- NOTE | 2023-06-13 11:15 | BH.SGPN.GN ---
Behaviors/Verbalizations/Mental Status: [] Eye contact is fair to good. Motor activity is within normal limits. Appearance is casual. Speech is Appropriate. Mood is anxious and depressed. Affect is constricted. Thoughts are linear and logical. No evidence of psychosis. Client Response/Progress/Benefit: [] Pt was a semi-active participant during group discussions, but did well to be an active participant in activity. Pt was placed in a smaller group and participated in quiz-show format in which small groups competed against each-other to answer questions based on identifying, challenging, and reframing cognitive distortions. Pt was engaged in the smaller group, participated in group interactions to brainstorm answers, and appeared to be comprehending cognitive distortions. Stated learning that ?automatic thoughts follow patterns and can be broken?. Benefited from gaining further insight and awareness of cognitive distortions as well as practicing ways to reframe and challenge thoughts. Will continue in IOP to promote use of anxiety management skills, stabilize mood, and improve ability to function. Narrative Note: []
[2023-06-14 00:34] VITALS: BP 138/79; PULSE 75
--- NOTE | 2023-06-14 09:10 | BH.SGPN.GN ---
Behaviors/Verbalizations/Mental Status: []Eye contact good, casually dressed, motor activity appropriate, speech normal rate and tone, mood anxious and content, congruent affect, thoughts linear and intact, no evidence of delusions or hallucinations. Reviewed pt's symptom tracker, no suicidal ideation, plan, or intent as of this date 06/14/23. Client Response/Progress/Benefit: []Pt responded well to session, attentive and providing supportive feedback throughout. Pt reports feeling ?happy this morning. Identified mental health ?wins? as making progress on sitting with the uncomfortable and remaining in group yesterday rather than escaping when feeling anxious and uncomfortable. Described using deep breathing and positive self-talk to aid in doing so. Additional win identified as challenging herself to set less rigid goals for herself and reports reminding herself the accomplishing 2/3 goals this morning is still a success. Pt stressor identified as several tasks she would like to accomplish to day and feeling overwhelmed by them. Receptive of and appearing to benefit from supportive feedback and suggestions from the group, identified plans to prioritize her tasks by importance. Pt to continue IOP tx to improve healthy coping skill application, improve positive self-talk, and further improve mood stability. Narrative Note: []
--- NOTE | 2023-06-14 13:30 | BH.MDN_ITS ---
Multi-Disciplinary Note Note 30-min Individual: Time Started:: 10:10 Date: 06/14/23 Purpose of session/treatment goals addressed:: To identify goals for today, review use of healthy coping skills, and process any stressors. Eye Contact:: Good Motor Activity:: Appropriate Appearance:: Neat Speech:: Appropriate Mood:: Euthymic Affect:: Full Thoughts:: Linear, Logical and No evidence of hallucinations/delusions noted Staff Interventions:: thought challenging, strengths perspective, goal setting and other (problem-solving) Client Response:: Pt responded well to session, open to meeting with therapist. Pt reported she left IOP yesterday feeling a little stressed and anxious, but pt was able to use healthy coping skills to manage her anxiety. Pt stated then her sister and one of their close friends got into an argument and pt felt upset. Pt has awareness that conflict is a big trauma trigger that causes pt to feel anxious and responsible to resolve the conflict. Pt also Risks/Concerns:: No SI or thoughts of reported as of 06/14/23 Progress Toward Goals/Plan:: Pt reports feeling somewhat anxious today, but overall much better. Pt shared I can tell my meds are working. Pt continues to endorse crying spells, negative core beliefs that reinforce anxiety and depression, ruminations, irritability, and difficulty with motivation. Pt has been consistent with practicing coping skills outside of IOP and is reporting benefitting from these skills. Pt will continue IOP tx to promote mood stability, reduce negative self-talk, and improve self-care pratices. Time Stopped:: 10:30
--- NOTE | 2023-06-14 13:30 | BH.MDN ---
Multi-Disciplinary Note Note 30-min Individual: Time Started:: 10:10 Date: 06/14/23 Purpose of session/treatment goals addressed:: To identify goals for today, review use of healthy coping skills, and process any stressors. Eye Contact:: Good Motor Activity:: Appropriate Appearance:: Neat Speech:: Appropriate Mood:: Euthymic Affect:: Full Thoughts:: Linear, Logical and No evidence of hallucinations/delusions noted Staff Interventions:: thought challenging, strengths perspective, goal setting and other (problem-solving) Client Response:: Pt responded well to session, open to meeting with therapist. Pt reported she left IOP yesterday feeling a little stressed and anxious, but pt was able to use healthy coping skills to manage her anxiety. Pt shared she had a goal to go for a run, take a shower, and get coffee with her sister this morning. Pt accomplished 2 out of the 3 goals and pt felt happy about this. This is significant progress for pt because pt struggles with all or nothing thinking that keeps pt from giving herself credit unless she completes everything. Pt stated she would like to run today, but pt does not think she will have time. Pt benefitted from problem-solving which helped pt habit stack and delegate some tasks so pt can have self-care time. Pt also noted that if she could run today her sleep would probably be better tonight. Pt shared since reducing caffeine her sleep has improved, but pt still wakes up multiple times a night. Pt reports she is also working on her homework from yesterday which is to think about her needs and positives that could come from becoming less codependent with her siblings. Risks/Concerns:: No SI or thoughts of reported as of 06/14/23 Progress Toward Goals/Plan:: Pt reports feeling somewhat anxious today, but overall much better. Pt shared I can tell my meds are working. Pt continues to endorse crying spells, negative core beliefs that reinforce anxiety and depression, ruminations, irritability, and difficulty with motivation. Pt has been consistent with practicing coping skills outside of IOP and is reporting benefitting from these skills. Pt will continue IOP tx to promote mood stability, reduce negative self-talk, and improve self-care pratices. Time Stopped:: 10:30
--- NOTE | 2023-06-18 09:00 | BH.SGPN.GN ---
Behaviors/Verbalizations/Mental Status: [Patient was alert and oriented, appropriately dressed and groomed. Eye contact was good, motor activity normal, speech within normal limits. Affect congruent, mood content. Thoughts linear, logical, no signs of hallucinations or delusions. Reviewed Patients symptom tracker and the patient reports depressed mood, anxiety/panic attacks, agitation/irritability/anger, self-harm urges, and thoughts/risk of suicide within normal limits.] Client Response/Progress/Benefit: [Patient was engaged and open to the discussion. Patient reported her mood to be ?upbeat and positive?. Patient stated her first win was that she wrote some letters to her boyfriend who lives in another state. She shared that he doesn?t have access to a phone biweekly because his job requires him to go into the [employer] for [facility]. So, when he comes back, she reads these letters to him over the phone. Patient stated her second win was that she got her chores done on Sunday and took a shower. Patients stressor is that she ?unhealthy? isolated herself watching a show for hours and hours which prevented her from finishing her errands. Patient was interactive and respectful with other group members about their mental wins and stressors. Patient benefited from the discussion by listening to feedback and giving input on her peer?s stressors and mental health wins. Patient will continue with IOP treatment to help develop healthy skills, promote mood stability, and improve distress tolerance. ] Narrative Note: []
--- NOTE | 2023-06-18 10:10 | BH.SGPN.GN ---
Behaviors/Verbalizations/Mental Status: []Pt alert and oriented, causally dressed and groomed. Eye contact good. Motor activity appropriate. Speech within normal limits. Affect congruent, mood euthymic and anxious. Thoughts linear, logical, no signs of hallucinations or delusions. Client Response/Progress/Benefit: [] Pt was engaged AEB listening to others and taking notes throughout session. Connected with the topic of pitfalls and listened to group discussion on internal and external barriers that prevent from choosing a healthier path to mental wellness. Group worked together to identify examples of personal internal pitfalls and pt identified theirs as avoidance, people pleasing, isolation, passive communication, and all or nothing thinking. Pt benefited from group as pt learned to better identify and normalize potential barriers to improving mental health symptoms. Pt also gained awareness of the difference between external triggers and self-sabotaging behaviors. Pt will continue IOP tx to increase utilization of healthy coping skills, challenge distorted/negative thoughts, and prevent decompensation.
--- NOTE | 2023-06-18 11:10 | BH.SGPN.GN ---
Behaviors/Verbalizations/Mental Status: []Pt alert and oriented, neatly dressed and groomed. Eye contact good. Motor activity appropriate. Speech within normal limits. Affect constricted, mood irritable and depressed. Thoughts linear, logical, no signs of hallucinations or delusions. Client Response/Progress/Benefit: [] Pt receptive of session, engaged throughout AEB actively contributing and listening to discussion, as well as taking notes. Pt participated in the experiential activity and processed with group how their emotions, perspective, and reactions positively and negatively impacted the outcome. Pt identified pitfalls they struggle with and shared wanting to work on pitfall of people pleasing by checking in with herself before she agrees to something. Benefited from identifying personal pitfalls and strategies to overcome these pitfalls. Will continue IOP tx to increase self-compassion, improve emotional regulation skills, and reduce negative thinking patterns. Narrative Note: []
--- NOTE | 2023-06-19 09:05 | BH.SGPN.GN ---
Behaviors/Verbalizations/Mental Status: [] Eye contact is good. Motor activity is appropriate. Appearance is disheveled. Speech is Appropriate. Mood is euthymic. Affect is full. Thoughts are linear and logical. No evidence of psychosis. Reviewed daily check in sheet and pt reports 2/5 for SI and 0/5 for intent which is incongruent with mood presentation. Client Response/Progress/Benefit: [] Pt was an active participant in group discussion. Attentive. Daily symptom tracker notes 3/5 for depression and self-harm urges. Pt's check-in was very positive and she shared several actions and skills that she took since yesterday that have significantly improved her mood. Smiling and interactive with peers. Provided appropriate feedback. Progress noted per pt report. Benefited from group support, encouragement, and feedback. Will continue in IOP to maintain safety, increase healthy coping, and to prevent decompensation. Narrative Note: []
--- NOTE | 2023-06-19 11:10 | BH.SGPN.GN ---
Behaviors/Verbalizations/Mental Status: []Pt alert and oriented, disheveled appearance. Eye contact good. Motor activity appropriate. Speech within normal limits. Affect congruent, mood euthymic. Thoughts linear, logical, no signs of hallucinations or delusions. Client Response/Progress/Benefit: [] Pt responded well to session, contributing to discussion, and engaged during the activity. Attentive during discussion on the quote. Group identified the benefits of change and worked with the group to identify barriers. Pt?s barriers to change included: guilt, fear of losing relationships, and negative thinking. Pt participated along with group in activity where they identified and discussed the emotions related to change. Pt provided examples of how she has benefitted from change even though pt is afraid of change. Benefited from increased awareness and understanding of emotions, benefits, and barriers related to change. Pt will continue IOP tx to promote mood stability, increase self-compassion, and reduce negative self-talk. Narrative Note: []
--- NOTE | 2023-06-19 11:15 | BH.SGPN.GN ---
Behaviors/Verbalizations/Mental Status: [] Eye contact is good. Motor activity is appropriate. Appearance is casual. Speech is Appropriate. Mood is depressed. Affect is congruent. Thoughts are linear and logical. No evidence of psychosis. Client Response/Progress/Benefit: [] Pt responded well to session, attentive. Did well to engage in and process activity. Pt worked with group to relate the strategies used to overcome barriers in the activity to managing change in own life. Pt identified wanting to work on feeling in control of my life . Pt identified that she is the contemplation and preparation phase. Benefited from increased awareness of changes desired and current stage of change. Will continue in IOP to prevent decompensation, increase healthy coping, and improve functioning. Narrative Note: []
--- NOTE | 2023-06-19 14:53 | BH.MDN_ITS ---
Multi-Disciplinary Note Note 60-min Individual: Time Started:: 12:10 Date: 06/19/23 Purpose of session/treatment goals addressed:: To work on goal #1 objective #2 of pt's tx plan. Another goal was to identify needs and boundaries. Eye Contact:: Good Motor Activity:: Appropriate Appearance:: Disheveled Speech:: Appropriate Mood:: Anxious and Depressed Affect:: Congruent (tearful) Thoughts:: Racing and No evidence of hallucinations/delusions noted Staff Interventions:: thought challenging, motivational interviewing, CBT techniques, mindfulness skills, strengths perspective, goal setting and other (discussed gathering evidence for new core beliefs and breaking the norm and abuse cycle in her life.) Client Response:: Pt responded well to session, open to meeting with therapist. Pt came into session and shared I'm in such a good mood as pt is going to visit her boyfriend this week. Pt stated she has been doing her homework of reflecting on what her life could look like if pt chose herself and moved out to be her own person. Pt became tearful and shared she is really struggling with accepting that this could be an option in pt's life. Pt stated she feels like her family is too used to pt's role of passive and selfless sister. Pt reported when I try to ask for help my family doesn't help me. Pt stated she tried to be assertive twice recently and her siblings did not reciprocate help. Pt stated her one sister has also been less understanding about pt's mental health because she just stuffs everything and over works and expects us to do that too. Pt showed progress with telling her mother and one of her sister's that she feels hurt that they tell her not to move away. Pt receptive to gentle thought challenging, self-compassion, and discussion on breaking the norms and codependency cycle. Pt benefited from looking at the evidence against her worries that pt becoming independent will ruin her relationship with her family. Pt also gained awareness that being home is a major trauma trigger and significantly exacerbates her depression/people pleasing. Pt noticed this because when pt was working away from home last summer [place] pt felt like myself. Pt plans to talk with her boyfriend this week and develop a realistic timeline for when pt could move out and what their future looks like together. Risks/Concerns:: Pt denies any active SI, plan, or intent. Pt is future oriented and is going to visit her boyfriend in [place] this week. Progress Toward Goals/Plan:: Pt is making progress towards her tx goals AEB pt's reduction in depression (38%), reduction in anger (33%), and reduction in anxiety (20%) since admission. Pt continues to endorse a depressed mood with negative core beliefs, isolation, crying spells, and lack of motivation. Pt is gaining awareness of the extent of her codependency with her siblings and this is triggering a lot of trauma responses including flight (escape) and negative c ore beliefs. Pt is doing well working through these emotions and being vulnerable with therapist. Pt will continue IOP tx to increase self-compassion, gain balanced core beliefs, and improve emotional regulation skills. Time Stopped:: 13:05
--- NOTE | 2023-06-19 14:53 | BH.MTP_ITS ---
Treatment Plan Review Demographics Date of Admission:: 05/29/23 Date of Treatment Plan Review:: 06/19/23 Admitting Diagnoses:: Major depressive disorder, recurrent, severe without psychosis F 33.2; Generalized anxiety disorder; Social anxiety disorder; PTSD; Alcohol use disorder with full remission since January 2023; History of anorexia with purging by emesis; Avoidant and cluster B traits Current Diagnoses:: Major depressive disorder, recurrent, severe without psychosis F 33.2; Generalized anxiety disorder; Social anxiety disorder; PTSD; Alcohol use disorder with full remission since January 2023; History of anorexia with purging by emesis; Avoidant and cluster B traits Patient Status Patient's Response to Treatment:: Pt has responded well to treatment AEB pt consistently attending IOP sessions and reduction of anxiety, anger, and depressive symptoms since admission. Pt contributes well during individual sessions and she is mostly engaged during group sessions, but this could increase. Pt applies coping skills outside of IOP and reports overall mood is improved and pt is becoming more aware of her responses to people pleasing tendencies and negative core beliefs. Status of Current Problems and Symptoms: Pt continues to endorse a depressed mood, lack of energy, worthlessness at times, guilt, and negative thoughts of self. Pt's symptoms are resolving, but pt has deep-rooted negative core beliefs that reinforce fear of failure, fear of disappointing others, and lack of self- care. Pt is also increasing awareness of how trauma has impacted pt's view of self and kept pt stuck. Pt is currently struggling with becoming less codependent on her family and becoming her own person. Progress Problem #1: Problem Name:: Depression, negative self-talk, thoughts of , irritability, and guilt Status of Goals:: Objective 1- in progress. Pt?s DSM-5 scores for depression have decreased by 37.5% since admission. And anger has decreased by 33%. Pt reports using opposite action and that her medication increase is improving her motivation. Objective 2- in progress. Pt is actively working on identifying old core beliefs and gathering new evidence for new, more balanced ones. Pt is also working on identifying and verbalizing her needs to her supports. Team Recommendations:: Treatment tx encourages pt to continue working on this tx goal as pt has made progress, but she can continue to reduce intensity of depressive symptoms and combat negative self-talk. Pt is also working on forming more balanced core beliefs and increasing self-compassion. Problem #2: Problem Name:: Anxiety, avoidance, PTSD Status of Goals:: Objective 1-in progress. Pt?s DSM-5 scores for anxiety has decreased by 20% since admission. Pt reports her sleep is improved and pt reports she is avoiding less than she was when she started IOP. Objective 2- in progress. Pt is working on combating mind-reading and all or nothing thinking that reinforces avoidance and anxiety. Team Recommendations:: Pt is encouraged to continue working on this goal as pt can further reduce anxiety and increase distress tolerance skills. Pt encouraged to continue working on boundary setting, setting smaller goals, and advocating for her needs in her relationships.
--- NOTE | 2023-06-26 09:05 | BH.SGPN.GN ---
Behaviors/Verbalizations/Mental Status: [] Eye contact is good. Motor activity is appropriate. Appearance is casual. Speech is Appropriate. Mood is anxious/irritable. Affect is congruent. Thoughts are linear and logical. No evidence of psychosis. Reviewed daily check in sheet and no reports of suicidal ideations or intent. Client Response/Progress/Benefit: [] Pt was an active participant in group discussion. Attentive. Daily symptom tracker notes 06/18 for anxiety and irritability. Shared with the group that she went out of town to visit her BF over the weekend. Overall she beleives that trip was fun and productive, however reports panic attacks and crying spells but it was good crying . Worked on being vulnerable and communicating assertively which was a significant mental health win for patient. Talked in more detail about the trip, her mental health, and recent progress. Able to identify struggles, however not ruminate or dwell on struggles as failures. Benefited from group support, encouragment, and feedback. Will continue in IOP to maintain safety, increase healthy coping, and to improve functioning. Narrative Note: []
--- NOTE | 2023-06-26 10:10 | BH.SGPN.GN ---
Behaviors/Verbalizations/Mental Status: []Pt alert and oriented, neatly dressed and groomed. Eye contact good. Motor activity appropriate. Speech within normal limits. Affect congruent, mood euthymic. Thoughts linear, logical, no signs of hallucinations or delusions. Client Response/Progress/Benefit: [] Pt active participant AEB pt providing input throughout group discussion. Pt attentive during psychoeducation about defense mechanisms. Showed engagement during small group discussions and helped group identify which defense mechanisms were maladaptive, adaptive, or ?somewhere in the flynn.? Pt started to work with group on identifying how each defense mechanism can impact mental health and gave examples. Pt gave personal example of how humor is a ?flynn? defense mechanism for pt. ?Seemed to benefit from gaining awareness about the different defense mechanisms. Pt to continue IOP tx to promote use of healthy coping skills, increase self-compassion, and reduce negative thinking patterns that reinforce people pleasing. ? Narrative Note: []
--- NOTE | 2023-06-26 10:10 | BH.SGPN.GN ---
Behaviors/Verbalizations/Mental Status: []Pt alert and oriented, casually dressed and groomed. Eye contact good. Motor activity appropriate. Speech within normal limits. Affect congruent, engaged. Thoughts linear, logical, no signs of hallucinations or delusions. Client Response/Progress/Benefit: [] Pt active participant AEB pt providing input throughout group discussion. Pt attentive during psychoeducation about defense mechanisms. Showed engagement during small group discussions and helped group identify which defense mechanisms were maladaptive, adaptive, or ?somewhere in the flynn.? Pt started to work with group on identifying how each defense mechanism can impact mental health and gave examples. Pt gave personal examples of how humor can help pt but also be a guard to being vulnerable. ?Seemed to benefit from gaining awareness about the different defense mechanisms. Pt to continue IOP tx to improve mood stability, increase emotional regulation skills, and further improve self-compassion. ? Narrative Note: []
--- NOTE | 2023-06-26 11:10 | BH.SGPN.GN ---
Behaviors/Verbalizations/Mental Status: []Pt alert and oriented, casually dressed and groomed. Eye contact good. Motor activity appropriate. Speech within normal limits. Affect congruent, mood euthymic. Thoughts linear, logical, no signs of hallucinations or delusions. Client Response/Progress/Benefit: [] Pt responded well to session, participating in activity and small group discussion. Group reviewed the rest of the defense mechanisms and discussed how these are adaptive, maladaptive, or somewhere in the flynn. Pt participated in the experiential activity which encouraged pts to draw a castle that portrayed their different defense mechanisms. Pt's defense mechanisms included self-discipline, suppression, intellectualization, humor, and sublimation. Pt shared she used to suppress her emotions a lot more, but pt is working on being more vulnerable with her loved ones. Pt reports wanting to work on reducing suppression and continuing to talk about her emotions. Pt appeared to benefit from gaining insight to the different defense mechanisms and learning coping skills. Pt will continue IOP tx to promote mood stability, increase self-compassion, and improve daily functioning. Narrative Note: []
--- NOTE | 2023-06-27 09:00 | BH.SGPN.GN ---
Behaviors/Verbalizations/Mental Status: [Patient was alert and oriented, appropriately dressed and groomed. Eye contact was good, motor activity normal, speech within normal limits. Affect flat, mood irritable. Thoughts linear, logical, no signs of hallucinations or delusions. Reviewed Patients symptom tracker and the patient reports moderate/severe in agitation/irritability/anger, low/moderate in anxiety/panic attacks, and low in depressed mood and self-harm urges. Patient does not report symptoms of thoughts/risk of suicide. ] Client Response/Progress/Benefit: [Patient was engaged and open to the discussion. Patient reported her mood to be ?irritated?. Patients first win was that she was able to make herself get in the shower this morning. Patient had shared in the past that this can be difficult for her to do and has been trying to make it apart of her routine. Patients second win was that she was able to set a boundary the day prior with a person. She shared that this person was bothering for her to help them with something and followed her around the house ?pestering? her. She stated that this person went as far as following her to the bathroom and she ?flipped out a little? on them and said that she was not going to be able to help them at that moment. Patient stated that money is a continuous stressor because the colder weather is her slow season. Patient was interactive and respectful with other group members about their mental wins and stressors. Patient benefited from the discussion by listening to feedback and giving input on her peer?s stressors and mental health wins. Patient will continue with IOP treatment to help develop healthy skills, promote mood stability, and improve distress tolerance. ] Narrative Note: []
--- NOTE | 2023-06-27 10:00 | BH.SGPN.GN ---
Behaviors/Verbalizations/Mental Status: [] Client alert and oriented, casually dressed and groomed. Eye contact good. Motor activity appropriate. Speech within normal limits. Affect congruent, mood euthymic. Thoughts linear, logical, no signs of hallucinations or delusions. Client Response/Progress/Benefit: [] Client responded well to session AEB sharing and listening attentively to others. Group provided examples of benefits of having social support, including: ability to process emotions with, security, and community. Client also participated in group discussion regarding the barriers to accessing support including personal examples like: self sabotage, lack of communication, and over using certain supports. Client participated in experiential activity illustrating the impact communication, boundaries, and patience play in creating healthy support systems. Client appeared to benefit from increased knowledge of the benefits of social support and greater self-awareness. Will continue IOP tx to challenge negative thought patterns, reduce negative self-talk, and improve overall functioning. Narrative Note: []
--- NOTE | 2023-06-27 11:00 | BH.SGPN.GN ---
Behaviors/Verbalizations/Mental Status: [] Client alert and oriented, casually dressed and groomed. Eye contact good. Motor activity appropriate. Speech within normal limits. Affect congruent, mood euthymic. Thoughts linear, logical, no signs of hallucinations or delusions. Client Response/Progress/Benefit: [] Client was an active participant throughout AEB contributing to discussion, providing personal examples, and taking notes. Client processed emotions felt in the activity and how they coped in the moment. Client provided input during discussion on the types of support our supports can provide. Client able to identify current support system and barriers that get in the way of using supports by drawing out their own support net. Client reported after identifying what type of supports they receive; they gained awareness that they could benefit from more emotional supports. Client identified steps to achieve this by going to [employer], women's group, and searching for more support groups to join. Client shared increasing emotional supports will help them manage emotions better. Client seemed to benefit from identifying the type of support client needs to work on improving. Client recommended to continue IOP tx to prevent decompensation, increase positive thought patterns, and increase emotional regulation skills. Narrative Note: []
--- NOTE | 2023-06-27 11:44 | PCM.BH.PN_ITS ---
Progress Note Progress Note: History of Present Illness/Interim History: The patient is a 23-year-old single female with a history of depression, PTSD and anxiety who was last seen 3 weeks ago and is seen in follow-up today at the [facility] behavioral health IOP. Patient states that she is doing pretty well and feels much better. At last visit her Effexor dose was increased to 75 mg daily and she is tolerating this well with mild side effects of occasional diaphoresis and some change in her dreams but she states that these are quite tolerable side effects. She still has some trouble sleeping but states that her mood is much more chill . She went on vacation and missed her Effexor for a few days and had a panic attack during this time. Her anxiety then lessened after she started taking her medication again. She feels she is benefiting from the IOP and is engaged according to staff and making good progress. She admits to passive thoughts of on occasion with the most recent time being 1 week ago. And these are only fleeting thoughts. She denies passive or active suicidal ideation, plan for suicide, thoughts of self-harm, homicidal ideation, hallucinations or delusions. Current Psychiatric Medications: [] Effexor XR 75 mg p.o. daily (x 2 weeks at this dose) Mental Status Examination: [] The patient is a 23-year-old female who appears normal for stated age and is casually dressed and groomed with good hygiene. She is ambulatory with a normal gait and has no psychomotor agitation or retardation. She is cooperative and pleasant during the interview. Eye contact is good and speech is normal rate and rhythm and fluent with no pressure. Mood is mildly depressed. Affect is full and normal. Thought processes goal-directed and organized. Thought content: There is no evidence of passive thoughts of currently. There is no evidence of suicidal idea tion, homicidal ideation, plan for suicide, hallucinations or delusions. Reality testing is intact. Impulsivity is low to moderate. Judgment is intact. Insight: Fair and improving. Diagnoses: [] 1. Major depressive disorder, recurrent, severe without psychosis (improving) 2. Generalized anxiety disorder 3 social anxiety disorder 4. PTSD 5. Alcohol use disorder with full remission since January 2023 6. History of anorexia with purging by emesis 7. Avoidant and cluster B traits Plan: [] The patient will continue the IOP at [facility] as the structure, support, education and group therapy will hopefully prevent worsening of the patient's symptoms that could require hospitalization. She felt safe during the interview and if it anytime she does not feel safe she will let us know or go to the emergency room. The risk, options, possible complications and side effects of Effexor were discussed with the patient and she understands accepts these. She will continue to follow-up with her outpatient providers and I will see her the patient in follow-up while she is in the IOP.
--- NOTE | 2023-06-27 15:18 | BH.MDN_ITS ---
Multi-Disciplinary Note Note 60-min Individual: Time Started:: 12:05 Date: 06/27/23 Purpose of session/treatment goals addressed:: To work on goal #1 of pt's tx plan by practicing self-compassion and combatting distortions. Eye Contact:: Good Motor Activity:: Appropriate Appearance:: Neat Speech:: Appropriate Mood:: Euthymic Affect:: Congruent Thoughts:: Linear, Logical and No evidence of hallucinations/delusions noted Staff Interventions:: thought challenging, CBT techniques, strengths perspective, goal setting and other (self-compassion techniques) Client Response:: Pt responded well to session, open to meeting with therapist. Pt went to see her boyfriend over the weekend and this was awesome. Pt stated they has some good conversations about their future and pt stated her boyfriend acknowledged that he gets anxious about talking about the future because of his past relationships. Pt and boyfriend were able to work through this and pt shared her boyfriend plans to work on being more vulnerable also. Pt stated she has finalized her decision to go to college in the fall and she sent in some applications. Pt did have some self-critical thoughts about her applications, but pt was able to challenge this. Pt also gave herself credit for working through difficult emotions this morning in a healthier way instead of suppressing the emotion and avoiding. Pt stated she also set a boundary with her mom yesterday and initially pt felt mean but then pt corrected herself and said no I wasn't mean I was actually really nice about it. Pt is continuing to work on building more balanced core beliefs and part of this is setting inocente undaries. Pt stated she advocated for her needs when she was with her boyfriend over the weekend and this was evidence that she can be loved and have needs. Pt's homework is to continue to challenge negative thinking and practicing self- compassion. Risks/Concerns:: Pt denies any suicidal ideations, plan, or intent as of 06/27/23. Progress Toward Goals/Plan:: Pt continues to make progress towards her tx goals AEB pt's self-report of reduced depression and improving functioning. Pt feels she is utilizing more boundary setting skills and being more emotionally vulnerable with her partner. Pt is finding more motivation to accomplish tasks. Pt does not want to return to outpatient therapist, so pt will need to find a new provider prior to discharge. Pt continues to struggle with negative self- talk, irritability, and people pleasing. Pt will continue IOP tx to promote mood stability, improve self-compassion, and further increase ability to challenge distortions. Time Stopped:: 13:00
--- NOTE | 2023-07-03 09:00 | BH.SGPN.GN ---
Behaviors/Verbalizations/Mental Status: [] Pt alert and oriented, casually dressed and groomed. Eye contact good. Motor activity appropriate. Speech within normal limits. Affect congruent, mood euthymic. Thoughts linear, logical, no signs of hallucinations or delusions. Reviewed pt?s symptom tracker, no risk for suicidal ideation, plan, or intent 07/03/23 Client Response/Progress/Benefit: []Pt responded well to session, attentive and engaged. Pt reports feeling happy this morning because pt found out that she got accepted at [employer] for the fallester. This is a significant step for pt as she is working towards finding her independence separate from her family. Pt shared she has been consistently giving herself credit as well and finding evidence to support her positive core beliefs. Pt is worried about her driving test, but she has been focusing on what is in her control to help pt feel more prepared. Pt appeared to benefit from gaining group support and processing her stressors. Pt will continue IOP tx to promote mood stability, reduce negative thinking patterns, and improve daily functioning. Narrative Note: []
--- NOTE | 2023-07-03 10:15 | BH.SGPN.GN ---
Behaviors/Verbalizations/Mental Status: [] Eye contact is good. Motor activity is appropriate. Appearance is casual. Speech is Appropriate. Mood is euthymic. Affect is bright. Thoughts are linear and logical. No evidence of psychosis. Client Response/Progress/Benefit: [] Pt was an engaged participant AEB listening attentively to others, taking notes, and providing feedback in small group discussions. Attentive during psychoeducation AEB by note taking and providing some input. Pt worked along with peers in small groups to define inappropriate guilt and appropriate guilt. Interactive discussion on examples of both inappropriate and appropriate guilt. Pt able to connect impact inappropriate guilt can have on MH. Benefited from increased awareness of guilt and the differences between appropriate and inappropriate guilt. Will continue in IOP to challenge distorted/negative thoughts, increase healthy coping skills, and prevent decompensation.
--- NOTE | 2023-07-03 11:15 | BH.SGPN.GN ---
Behaviors/Verbalizations/Mental Status: []Pt alert and oriented, casually dressed and groomed. Eye contact good. Motor activity appropriate. Speech within normal limits. Affect congruent, mood content. Thoughts linear, logical, no signs of hallucinations or delusions. Client Response/Progress/Benefit: [] Pt engaged participant AEB listening attentively to others and providing input throughout group. Pt worked within their small group to identify strategies to manage inappropriate guilt. Shared a personal example of inappropriate guilt as feeling responsible to someone else's actions. Insight this cues a fear of disappointing others and feeling responsible or at fault for everything, even if out of pt's control. Pt wants to work on combatting inappropriate guilt by challenging distortions, improving use of mindfulness skills, and focusing on self-compassion. Pt seemed to benefit from learning about strategies to manage appropriate and inappropriate guilt. Pt will continue IOP tx to reduce promote mood stability, encourage positive self-talk, and prevent decompensation. Narrative Note: []
--- NOTE | 2023-07-04 09:05 | BH.SGPN.GN ---
Behaviors/Verbalizations/Mental Status: [Patient was alert and oriented, appropriately dressed and groomed. Eye contact was good, motor activity normal, speech within normal limits. Affect flat, mood content. Thoughts linear, logical, no signs of hallucinations or delusions. Reviewed Patients symptom tracker and the patient reports depressed mood, anxiety/panic attacks, agitation/irritability/anger, self-harm urges, and thoughts/risk of suicide within normal limits.] Client Response/Progress/Benefit: [Patient was engaged and open to the discussion. Patient reported her mood to be ?Motivated and Happy?. Patient stated that her first win is that she is finally feeling normal. She shared that when she was doing things she knew would ?make her better? it felt like a chore, but now they felt natural yesterday. Patients second win is that she is overall functioning better and uses the thought challenging skill the most. Patients stressor is generally money but her working season is about to kick off and she will start working again. Patient was interactive and respectful with other group members about their mental wins and stressors. Patient benefited from the discussion by listening to feedback and giving input on her peer?s stressors and mental health wins. Patient will continue with IOP treatment to help develop healthy skills, promote mood stability, and improve distress tolerance. ] Narrative Note: []
--- NOTE | 2023-07-04 10:15 | BH.SGPN.GN ---
Behaviors/Verbalizations/Mental Status: [] Eye contact is good. Motor activity is appropriate. Appearance is casual. Speech is Appropriate. Mood is anxious. Affect is congruent. Thoughts are linear and logical. No evidence of psychosis. Client Response/Progress/Benefit: [] Pt was an active participant in group discussions AEB listening attentively to others and providing feedback at times. Participated in and was engaged during experiential activity. Able to relate activity to group topic of FOF. Engaged during interactive discussion on what failure means to the group in which peers identified and defined failure. Group was able to identify impact of fear of failure on mental health identifying that it can cause isolation, procrastination, resentment, and complacency . Attentive during interactive discussion on the role that FOF plays in mental wellness, depression, anxiety, and growth. Benefited from increased awareness of how the role that FOF plays in mental health and decision-making. Will continue in IOP to stabilize mood, decrease intrusive thoughts,and increase healthy coping. Narrative Note: []
--- NOTE | 2023-07-04 11:10 | BH.SGPN.GN ---
Behaviors/Verbalizations/Mental Status: []Pt alert and oriented, neatly dressed and groomed. Eye contact good. Motor activity appropriate. Speech within normal limits. Affect congruent, mood euthymic. Thoughts linear, logical, no signs of hallucinations or delusions. Client Response/Progress/Benefit: []Pt responded well to session, engaged in the experiential activity and attentive throughout group processing. Pt reported fear of failure has kept Pt from learning to drive, going to college, writing, and moving out on her own. Pt completed fear of failure worksheet and was able to identify thoughts and behaviors that reinforce personal fear of failure including self-doubt, past failures, and negative/distorted thought patterns. Pt participated in group discussion regarding strategies to overcome fear of failure. Identified wanting to work on being more self-compassionate. Appeared to benefit from increased knowledge of strategies to combat fear of failure and gaining self-awareness. Pt will continue IOP tx to promote mood stability, establish aftercare, and improve self-compassion. Narrative Note: []
--- NOTE | 2023-07-04 15:25 | BH.MDN ---
Multi-Disciplinary Note Note 45-min Individual: Time Started:: 12:05 Date: 07/04/23 Purpose of session/treatment goals addressed:: To discuss aftercare plan, combat distortions, and discuss maintenance strategies. Eye Contact:: Good Motor Activity:: Appropriate Appearance:: Neat Speech:: Appropriate Mood:: Euthymic Affect:: Full Thoughts:: Linear, Logical and No evidence of hallucinations/delusions noted Staff Interventions:: thought challenging, motivational interviewing, mindfulness skills, discharge planning and strengths perspective Client Response:: Pt responded well to session, open to meeting with therapist. Pt reported that she is doing well and she feels hopeful about her future. Pt got into [employer] and plans to start in the fall. Pt's partner plans to move to [place] to be with pt and begin searching for graduate programs while pt goes to college. Pt has struggled for years with people pleasing and not giving herself permission to follow her dreams/goals. This makes pt applying to and planning to move to [place] very significant. Pt shared she is being more compassionate to herself when her negative thought patterns occur and she is feeling more confident setting boundaries with family. Pt wants to be mindful of her pitfalls to prevent any major relapses. Pt's pitfalls included not taking medications, not giving herself time for self-care, saying yes to everything, and not having time for a routine. 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 Pt is looking forward to this thought because it will good closure in me moving onto my own thing in the fall. Pt's partner will also be working festivals and pt is excited about this. Pt stated she can also be prepared to feel vulnerable and uncomfortable maintaining the boundaries she is setting as it will be new, but not a bad thing for pt. Risks/Concerns:: Pt denies any thoughts of or suicidal ideations. Progress Toward Goals/Plan:: Pt continues to make progress towards her tx goals AEB pt's self-report of reduced depression and improving functioning. Pt feels she is utilizing more boundary setting skills and being more emotionally vulnerable with her partner. Pt is finding more motivation to accomplish tasks and pt feels optimistic and happy about the future. Pt reports she is giving herself permission to do things for herself and she is challenging the automatic thoughts that say this is selfish. Pt continues to struggle with negative self-talk and people pleasing but this is reducing. Pt plans to call [facility] for continuity of care. Pt will continue IOP tx to promote mood stability, improve self-compassion, and further increase ability to challenge distortions. Time Stopped:: 12:50
--- NOTE | 2023-07-05 09:00 | BH.SGPN.GN ---
Behaviors/Verbalizations/Mental Status: [] Eye contact is good. Motor activity is appropriate. Appearance is casual. Speech is Appropriate. Mood is euthymic. Affect is full. Thoughts are linear and logical. No evidence of psychosis. Reviewed daily check in sheet and no reports of suicidal ideations or intent. Client Response/Progress/Benefit: [] Pt was an active participant in group discussion. Attentive. Daily symptom tracker notes 2/5 for anxiety and agitation and 1/5 for depression. She shared recent stressful situations at home regarding conflict amongst other roommates. While the conflict doesn't directly impact her the external psychosocial stressors and changes in dynamics have led to ruminations, stress, and anxiety for herself. In the past this could have led to intrusive thoughts, emotional dysregulation, or decompensation however she continues to reframe, challenge, and utilize skills to accept which has been beneficial. According to pt she is managing her day to day emotions. Emotion for today is happy/calm . Progress noted. Benefited from group support, encouragement, and feedback. Will continue in IOP to maintain safety, decrease intrusive thoughts, stabizlize mood, and improve functioning to return to work. Narrative Note: []
--- NOTE | 2023-07-05 10:10 | BH.SGPN.GN ---
Behaviors/Verbalizations/Mental Status: []Pt alert and oriented, casual appearance. Eye contact fair. Motor activity appropriate. Speech within normal limits. Affect congruent, mood euthymic. Thoughts linear, logical, no signs of hallucinations or delusions. Client Response/Progress/Benefit: [] Client engaged participant AEB completing self-assessment worksheet and providing input throughout discussion. Client completed worksheet identifying current self-care practices and what self-care activities client wants to start using. Client selected emotional and psychological self-care to begin practicing more consistently. Client plans to do this by talking kindly to self and doing things she enjoys. Appeared to benefit from completing the self-care evaluation and gaining insights into current self-care practices, as well as identifying areas in which client would like to improve upon. Client will continue IOP tx to continue use of healthy coping skills, improve view of self, and prevent decompensation.
--- NOTE | 2023-07-05 11:10 | BH.SGPN.GN ---
Behaviors/Verbalizations/Mental Status: []Pt alert and oriented, appearance appropriate. Eye contact good. Motor activity appropriate. Speech within normal limits. Affect congruent, mood anxious and content. Thoughts linear, logical, no signs of hallucinations or delusions. Client Response/Progress/Benefit: [] Client engaged participant AEB completing self-assessment worksheet and providing input throughout discussion. Client completed worksheet identifying current self-care practices and what self-care activities client wants to start using. Client selected physical and spiritual self-care to begin practicing more consistently. Client plans to do this by being more consistent with regular meals and beginning a yoga routine. Appeared to benefit from completing the self-care evaluation and gaining insights into current self-care practices, as well as identifying areas in which client would like to improve upon. Client will continue IOP tx to promote skill application, improve mood stability, and prevent decompensation. Narrative Note: []
--- NOTE | 2023-07-10 09:00 | BH.SGPN.GN ---
Behaviors/Verbalizations/Mental Status: [] Eye contact is good. Motor activity is appropriate. Appearance is casual. Speech is Appropriate. Mood is depressed/irritable. Affect is congruent. Thoughts are linear and logical. No evidence of psychosis. Reviewed daily check in sheet and no reports of suicidal ideations or intent. Client Response/Progress/Benefit: [] Pt was an active participant in group discussion. Attentive. Daily symptom tracker notes 06/18 for anxiety and irritability. She elaborated on stressors which occurred this week. Reports unhealthy coping skills, panic attacks, and increased anxiety over the weekend which she attributes to running out of her medication and alcohol use. Forboding feeling all day yesterday that something is wrong which led to negative thoughts, fear, anxiety, and worry. This also impacted functioning. She utilized support yesterday I talked with my sisters which helped her process and reframe thoughts. She was able to refill her medications yesterday and reports improved functioning and decreased anxiety today. Emotion for today is content. Progress noted with increase confidence as she was able to overcome anxiety epsiode. Beneiftred from group support, encouragement, and feedback. Will continue in IOP to prevent decompensation, stablize mood, decrease anxiety, and improve functioning. Narrative Note: []
--- NOTE | 2023-07-10 10:15 | BH.SGPN.GN ---
Behaviors/Verbalizations/Mental Status: []Pt alert and oriented, casually dressed and groomed. Eye contact good. Motor activity appropriate. Speech within normal limits. Affect congruent, mood anxious and content. Thoughts linear, logical, no signs of hallucinations or delusions. Client Response/Progress/Benefit: [] Pt responded well to session AEB contributing to small group discussion, taking notes, and listening attentively to others. Group discussed the benefits of managed anger and anger as a secondary emotion. Pt shared perspective on personal benefits of anger as advocating for self. Pt completed worksheet on anger triggers and personal warning signs of anger. Pt identified a common trigger as being taken advantage of. Appeared to benefit from increased knowledge of the anger cycle as well as personal triggers. Will continue IOP tx to promote mood stability, reduce distorted thought patterns, and prevent decompensation. Narrative Note: []
--- NOTE | 2023-07-10 11:15 | BH.SGPN.GN ---
Behaviors/Verbalizations/Mental Status: []Client alert and oriented, casually dressed and groomed. Eye contact fair. Motor activity appropriate. Speech within normal limits. Affect constricted, mood euthymic and anxious. Thoughts linear, logical, no signs of hallucinations or delusions. Client Response/Progress/Benefit: []Pt was engaged throughout AEB contributing to group discussion and self-reflection. Group finished processing cues to anger worksheet. Pt contributed as group brainstormed healthy coping skills for better managing anger which included: music, walking/exercise, taking a break, grounding tools, reflection, and journaling. Pt identified personal anger cycle able to make connections on how own thoughts/evaluations of a situation can worsen anger feelings. Pt shared this topic challenges her because she has tried to convince herself that she doesn't feel angry because she has labeled anger as bad . Pt stated she recognizes she often overcompensates as a way to avoid expressing anger. Pt appeared to benefit from identifying different techniques to manage anger as well as gaining awareness of potential consequences of unmanaged anger. Pt to continue IOP to improve distress tolerance, continue working on setting boundaries, and prevent decompensation.
--- NOTE | 2023-07-11 09:05 | BH.SGPN.GN ---
Behaviors/Verbalizations/Mental Status: [Patient was alert and oriented, appropriately dressed and groomed. Eye contact was good, motor activity normal, speech within normal limits. Affect congruent, mood content. Thoughts linear, logical, no signs of hallucinations or delusions. Reviewed Patients symptom tracker and the patient reports depressed mood, anxiety/panic attacks, agitation/irritability/anger, self-harm urges, and thoughts/risk of suicide within normal limits.] Client Response/Progress/Benefit: [Patient was engaged and open to the discussion. Patient reported her mood to be ?anxious?. Patients wins and stressors are all related. 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 Patient shared that she was so upset that she went home and isolated for a couple hours watching tv but stated instead of freaking out on people she calmly told them she needed to be alone. Patient said that after a few hours she ended up spending some time with his sisters on the roof and was able to joke about her failing her test. Patient said she feels that she is mostly ?over it now?. Patient was interactive and respectful with other group members about their mental wins and stressors. Patient benefited from the discussion by listening to feedback and giving input on her peer?s stressors and mental health wins. Patient will continue with IOP treatment to help develop healthy skills, promote mood stability, and improve distress tolerance. ] Narrative Note: []
--- NOTE | 2023-07-11 10:15 | BH.SGPN.GN ---
Behaviors/Verbalizations/Mental Status: [] Eye contact is good. Motor activity is appropriate. Appearance is casual. Speech is Appropriate. Mood is content and anxious. Affect is congruent. Thoughts are linear and logical. No evidence of psychosis. Client Response/Progress/Benefit: []Pt engaged participant AEB listening to others, engaging in activity, and providing feedback at times. Attentive during psychoeducation and provided insight into obstacles the impede mental wellness. Pt shared with group current mental health reality and desired mental health reality. Stated she would like to get to a place where she feels more confident in herself and her ability to independently make decisions about her life and goals for her future. Identified barriers to desired reality include: negative self-talk, distorted thoughts, poor self-confidence, and ego. Benefited from taking look at current mental health state and obstacles for progress. Pt to continue IOP tx to maintain mood stability, reduce unhealthy thinking and dependence on others, and prevent decompensation. Narrative Note: []
--- NOTE | 2023-07-11 11:15 | BH.SGPN.GN ---
Behaviors/Verbalizations/Mental Status: []Pt alert and oriented, neatly dressed and groomed. Eye contact good. Motor activity appropriate. Speech within normal limits. Affect congruent, mood euthymic. Thoughts linear, logical, no signs of hallucinations or delusions. Client Response/Progress/Benefit: []Pt participated in group discussion, drawing, and activity. Worked with group to identify strategies to help overcome barriers and obstacles to desired reality. Group developed strategies for the common barriers of avoidance, feeling burned out, unrealistic expectations, emotional reasoning, and difficulty asking for help. Identified personal barriers to desired reality and choose one obstacle to work on this week which was self-doubt. Pt plans to do this by making a list of her strengths. Pt seemed to benefit from group by identifying obstacles and solutions to desired reality. Will continue in IOP to promote gains, establish aftercare, and further improve self-compassion. ? Narrative Note: []
--- NOTE | 2023-07-11 15:39 | BH.AFTERPLAN ---
Aftercare Plan Demographics Treatment End Date:: 07/12/23 Psychiatrist:: Trinh Abel Psychiatrist Office #:: [id number] [facility]/IOP Therapist:: Britney Santacruz Therapist Phone #:: [phone] Medications Home Medications venlafaxine 37.5 mg capsule,extended release 24 hr (Effexor XR) 75 mg (2 x 37.5 mg) PO DAILY 30 days #30 caps 06/27/23 Plan Details Progress/Aftercare Plan Details:: Elba has responded well to treatment as evidenced by Elba consistently attending IOP sessions and her reduction of DSM-5 scores since admission. Elba was always attentive and receptive to learning during group and individual sessions. Elba actively applied coping skills outside of IOP and reports overall her mood is improved and she is functioning better than she was several months ago. Elba?s overall symptom reduction is 34% since admission with anger decreasing by 33%, depression decreasing by 63%, suicidal thoughts decreasing by 50%, and anxiety decreasing by 30%. Elba has increased self-confidence in her ability to manage stressors, emotions, and her distorted thinking patterns. Most importantly, Elba has gained self-compassion, become more vulnerable, and increased understanding of her right to set boundaries and practice self-care. Strategies for Success:: 1. Opposite action! Continue to challenge yourself to not let anxiety or depression drive your bus. 2. Set small goals each day and break down bigger stressors. 3. Continue to ask for help and advocate for yourself, yes this means putting your needs first sometimes. 4. Challenge distorted thoughts. Remember that something can be overwhelming AND you can cope with it. And there is rarely a time when it is the end of the world. 5. Keep challenging yourself to find the evidence!! 6. Self-care! this means the fun and not so fun stuff. 7. Keep using your calming skills when anxious. 8. Remember that you are important, but, you are not special. People will figure things out if they have to. It's not your job to keep everyone together. 9. Give yourself credit and write them down! 10. Continue working on sitting with the uncomfortable! 11. Be creative! 12. Grow the life you want! Appointments Appointments/Referrals to Other Services:: 1. [facility] for medication management. 2. IOP aftercare starting 07/19/23 from 2-3:30pm
--- NOTE | 2023-07-12 09:02 | BH.SGPN.GN ---
Behaviors/Verbalizations/Mental Status: [] Eye contact good. Motor activity appropriate. Speech within normal limits. Affect congruent, mood euthymic. Thoughts linear, logical, no signs of hallucinations or delusions. Reviewed client?s symptom tracker, denies SI, plan, or intent as of 07/12/2023. Client Response/Progress/Benefit: [] Client receptive of session, attentive and willing to process with group. Identified mental health ?wins? as challenging herself to sit with the uncomfortable and engage in something that felt stupid in the moment but she recognized would end up being beneficial long-term. Additional win noted as allowing herself to acknowledge her own progress and resilience. Reports current stressor as maintaining the gains she has made as today is her last day in IOP. Did well to identify skills she can utilize to do so. Client appeared to benefit from group support and encouragement. Recommended d/c from IOP tx and continue in outpatient counseling to maintain gains and mood stability, as well as continue to promote consistent skill application, and prevent decompensation. Narrative Note: []
--- NOTE | 2023-07-12 09:57 | BH.DS_ITS ---
Discharge Summary Demographics Date of Admission:: 05/29/23 Discharge Date: 07/12/23 Presenting Problems at Admission:: Pt has history of trauma, social anxiety, eating disorder, and alcohol use disorder. Functional Impact: Pt is a 22-year-old single, female with a history of depression, PTSD and anxiety who referred herself back to the [facility] due to worsening symptoms of depression and anxiety in the past few months. Pt discontinued her Effexor for 2 months and her moods became erratic and she noticed sadness, worthlessness, and was feeling like a burden. She is having crying episodes with occasional hopelessness and guilt. She is working 3 jobs and out to keep myself busy . She is sleeping 9 or 10 hours a night and her appetite is somewhat decreased. Pt is finding it hard to accomplish her ADLs but is able to function at work. She admits to passive thoughts of but denies current suicidal ideation. She most recently had suicidal ideation which was passive about 1 week ago and she thought of plans to overdose or cut herself but had no definite plan and states that she does not want to kill herself. She has no access to any weapons. Pt has been having panic attacks, but less recently. Pt?s symptoms are currently impacting her occupational, social, and familial functioning. Discharge Diagnoses:: Major depressive disorder, recurrent, severe without psychosis F 33.2; Generalized anxiety disorder; Social anxiety disorder; PTSD; Alcohol use disorder with full remission since January 2023; History of anorexia with purging by emesis; Avoidant and cluster B traits Reason for Discharge:: Pt has accomplished her tx goals AEB her reduced DSM-5 scores and improve mood. Pt no longer meets criteria for [facility] level of care and will discharge to [facility] aftercare and outpatient psychiatry. Treatment Progress During Treatment & Response: Pt has responded well to treatment as evidenced by Pt consistently attending IOP sessions and her reduction of DSM-5 scores since admission. Pt was always attentive and receptive to learning during group and individual sessions. Pt actively applied coping skills outside of [facility] and reports overall her mood is improved and she is functioning better than she was several months ago. Pt?s overall symptom reduction is 34% since admission with anger decreasing by 33%, depression decreasing by 63%, suicidal thoughts decreasing by 50%, and anxiety decreasing by 30%. Pt has increased self- confidence in her ability to manage stressors, emotions, and her distorted thinking patterns. Most importantly, Pt has gained self-compassion, become more vulnerable, and increased understanding of her right to set boundaries and practice self-care. Issues Still to be Addressed:: Negative thinking patterns, all or nothing expectations of self, consistent self-care, trauma responses and triggers, boundary setting and assertive communication, and maintenance of healthy coping skills. Discharge Recommendations/Instructions:: Pt will continue with Ashly Peterson for medication management. Pt called in session to schedule another appointment and left a message. Pt was encouraged to get outpatient mental health counseling, but pt declined at this time as pt will be working a lot and wants to wait until the busy season slows to find a provider. Pt does plan to attend [facility] aftercare once a week for maintenance and accountability. Discharge Handout
--- NOTE | 2023-07-12 10:15 | BH.SGPN.GN ---
Behaviors/Verbalizations/Mental Status: []Pt alert and oriented, neatly dressed and groomed. Eye contact good. Motor activity appropriate. Speech within normal limits. Affect congruent, mood euthymic. Thoughts linear, logical, no signs of hallucinations or delusions. Client Response/Progress/Benefit: []Pt an active participant throughout. Participated during interactive discussion on defining conflict (internal/external) and possible benefits to conflict. Attentive during psychoeducation on conflict styles and engaged during small group activity in which peers identified the benefits and consequences to each conflict style. Pt identified their primary conflict style as accommodating type which in the past has ?slowly eroded my sense of self.? Pt shared she is becoming more collaborative lately and this has been making her relationships better. Benefited from increased awareness of the impact of conflict styles in mental health. Will discharge from IOP tx as pt has accomplished her tx goals and no longer meets criteria for IOP level of care. Narrative Note: []
--- NOTE | 2023-07-12 11:10 | BH.SGPN.GN ---
Behaviors/Verbalizations/Mental Status: [] Eye contact is good. Motor activity is appropriate. Appearance is casual. Speech is Appropriate. Mood is euthymic. Affect is full. Thoughts are linear and logical. No evidence of psychosis. Client Response/Progress/Benefit: [] Pt was an active participant in group discussions and activity. Attentive during psychoeducation on the benefits and drawback of each conflict style. Along with peers was able to reflect on what conflict resolution skills can be useful outside of IOP. Pt chose to continue to work on the conflict resolution skill of expressing myself more . Benefited from practicing and learning conflict resolution skills during group activity. Able to relate activity back to group topic. Pt is set to discharge from IOP successfully today. Narrative Note: []
--- NOTE | 2023-07-12 14:15 | BH.MDN_ITS ---
Multi-Disciplinary Note Note 60-min Individual: Time Started:: 12:10 Eye Contact:: Fair Motor Activity:: Appropriate Appearance:: Casual Speech:: Appropriate Mood:: Anxious Affect:: Constricted Thoughts:: Circular and No evidence of hallucinations/delusions noted Staff Interventions:: thought challenging, CBT techniques, mindfulness skills, discharge planning and strengths perspective Time Stopped:: 13:05
--- NOTE | 2023-07-12 14:15 | BH.MDN ---
Multi-Disciplinary Note Note 60-min Individual: Time Started:: 12:10 Date: 07/12/23 Purpose of session/treatment goals addressed:: To address current stressors and discuss strategies to help cope with these stressors. Another goal was to discuss discharge and aftercare. Eye Contact:: Fair Motor Activity:: Appropriate Appearance:: Casual Speech:: Appropriate Mood:: Anxious Affect:: Constricted Thoughts:: Circular and No evidence of hallucinations/delusions noted Staff Interventions:: thought challenging, CBT techniques, mindfulness skills, discharge planning and strengths perspective Client Response:: Pt responded well to session, open to meeting with therapist. Pt reports that she is struggle in the moment after having the conflict resolution group. Pt stated the activity today triggered some negative self-talk and anxiety as pt continues to struggle with assertively communicating her needs. Pt responded well to mindfulness skills and thought challenging. Pt able to reduce her anger and anxiety and ground herself. Once pt was more grounded, she could challenger her perspective and remind herself that she can still have things to improve upon and be making lots of progress in other areas. Pt has done a lot of vulnerable things while in IOP including applying for college, communicating her needs with her boyfriend, and setting boundaries. Pt recognizes that she can benefit from continuing to work on her self-esteem, self-compassion, and sitting with uncomfortable emotions rather than avoiding them. Risks/Concerns:: Pt denies any suicidal ideations, plan, or intent as of 07/12/23. Progress Toward Goals/Plan:: Pt will discharge from IOP tx today as pt has accomplished her tx goals. Pt?s overall symptom reduction is 34% since admission with anger decreasing by 33%, depression decreasing by 63%, suicidal thoughts decreasing by 50%, and anxiety decreasing by 30%. Pt has been encouraged to get outpatient counseling, but pt has declined at this time. Pt plans to attend [facility] aftercare. Pt will continue with Ashly Peterson for medication management. Time Stopped:: 13:05
== END 2023-07-12 13:24 | disposition home or self-care (01) ==
LOC: BHIOP 07:50
PROVIDERS: PCP Pediatrics; Referring Provider Psychiatry & Neurology Psychiatry; Visit Provider Psychiatry & Neurology Psychiatry
DX: F33.2 Major depressive disorder, recurrent severe without psychotic features (principal); F41.1 Generalized anxiety disorder; F41.8 Other specified anxiety disorders; F43.10 Post-traumatic stress disorder, unspecified; F10.91 Alcohol use, unspecified, in remission; F50.00 Anorexia nervosa, unspecified; F60.6 Avoidant personality disorder
CPT/HCPCS: 99213; H2012; H2020; S9480; 90832; 90834; 90837

== ENCOUNTER 2023-07-26 08:00 | Outpatient (RCR) | payer MEDICAID, SELFPAY ==
--- NOTE | 2023-07-26 14:00 | BH.SGPN.GN ---
Behaviors/Verbalizations/Mental Status: []Pt alert and oriented, casually dressed and groomed. Eye contact good. Motor activity appropriate. Speech within normal limits. Affect congruent, mood euthymic. Thoughts linear, logical, no signs of hallucinations or delusions. Client Response/Progress/Benefit: [] Pt receptive of session, engaged throughout. Pt shared she does not have an outpatient therapist but has been consistent with medication management. Reports the coping skills used throughout the week included: non-zero days, self-compassion, and thought challenging. Receptive of discussion on the three components of the Wellness Denio (social, mental health, and physical) and the importance of balancing each of these areas. Pt contributed to the discussion on the variables impacting each area of wellness including: biology, environment, attitude, behavior, technology, and social support network. Completed an assessment reviewing personal wellness in each pillar of the wellness triangle. Identified wanting to work on mental wellness by continuing to challenge herself to practice vulnerability and regular journaling. Pt seemed to benefit from support from peers and increasing understanding of the relationship between different areas of wellness. Will remain in the aftercare program to maintain gain and prevent decompensation. Narrative Note: []
--- NOTE | 2023-07-26 14:07 | BH.COMM ---
Communication Note Communication with Client Communication Note: Patient completed IOP and presents today to start relapse prevention group which meets once weekly (1.5 hours) for 8 weeks. Case discussed with Dr. Doll with plan to admit with dx of F33.2
--- NOTE | 2023-07-26 16:42 | BH.MTP ---
Master Treatment Plan Patient Information Program Physician:: Dr. Trinh Abel Primary Therapist:: Britney SMALL Psychiatric Diagnoses Psychiatric Diagnoses:: Major depressive disorder, recurrent, severe without psychosis F 33.2; Generalized anxiety disorder; Social anxiety disorder; PTSD; Alcohol use disorder with full remission since January 2023; History of anorexia with purging by emesis; Avoidant and cluster B traits Diagnosis Code(s):: F33.2 Estimated LOS Estimated LOS (in weeks):: 8 Problem/Goal #1 Problem/Goal #1 Stated Goal:: client will maintain or see a reduction in symptoms AEB client score on the DSM 5 cross-cutting measure and improve client's daily functioning. Objectives Objective #1: Stated Objective: Client will continue to consistently apply healthy coping skills to maintain progress made in IOP tx. Interventions: Through group therapy, client will review warning signs and triggers as well as healthy coping skills learned in IOP tx to successfully maintain gains while transitioning into outpatient therapy. Discharge Criteria: Client will have accomplished this goal when client's score on the DSM-5 cross-cutting measure has maintained or reduced over a 8 week period. Target Date: 09/20/23 Review Date: 08/23/23 Status: open Objective #2: Stated Objective: Client will learn and utilize 2-3 maintenance strategies to prevent decompensation from original IOP DSM-5 scores. Interventions: Through group therapy, client will be provided with education on healthy maintenance behaviors, relapse prevention techniques, and healthy coping strategies. Discharge Criteria: Client will have accomplished this goal when can report using at least 2 maintenance skills to prevent decompensation compared to original IOP DSM-5 scores Target Date: 09/20/23 Review Date: 08/23/23 Status: open
--- NOTE | 2023-08-02 14:00 | BH.SGPN.GN ---
Behaviors/Verbalizations/Mental Status: []Pt alert and oriented, neatly dressed and groomed. Eye contact good. Motor activity appropriate. Speech within normal limits. Affect congruent, mood euthymic. Thoughts linear, logical, no signs of hallucinations or delusions. Client Response/Progress/Benefit: [] Pt receptive of session, engaged throughout. Pt did not have an appointment with a therapist this week. Pt has been consistent with taking meds and using coping skills. These skills included: eating regularly, being more assertive, and being consistent with aftercare. Receptive of discussion on sitting with the uncomfortable and emotional urges. Pt contributed to the discussion of distress tolerance and how building distress tolerance can help improve mood stability and resilience. Pt looked at a recent situation that was distressing and wrote out low distress tolerance and high distress tolerance responses. Pt wants to work on calling the doctors office that she has been avoiding. Pt seemed to benefit from support from peers and increasing understanding of distress tolerance. Will continue IOP aftercare tx to promote gains made in IOP and promote mood stability. Narrative Note: []
== END 2023-08-12 23:59 ==
LOC: BHOG 08:00
PROVIDERS: PCP Pediatrics; Referring Provider Psychiatry & Neurology Psychiatry; Visit Provider Psychiatry & Neurology Psychiatry
DX: F33.2 Major depressive disorder, recurrent severe without psychotic features (principal)
CPT/HCPCS: 90853

== ENCOUNTER → 2023-07-31 | Outpatient (CLI) | payer MEDICAID, SELFPAY ==
[2023-07-31 09:59] LABS: Color, Urine Yellow (Yellow); Glucose, Dipstick Normal (Normal); Ketone-Dipstick 5 mg/dl (Negative); Leukocyte Esterase-Dipstick 500 /ul (Negative); Nitrite-Dipstick Negative (Negative); Occult Blood-Urine 50 /ul (Negative); Protein-Dipstick 15 mg/dl (Negative); Urine Bilirubin Dipstick Negative (Negative); Urine Clarity Cloudy (Clear); Urine Urobilinogen Normal (Normal)
[2023-07-31 10:16] LABS: Bacteria 2+ /hpf (None Seen); Mucous, Urine 4+ /hpf (<or=2+); Red Blood Cells-Urine 0-5 SEEN /hpf (0-5); Squamous Epithelial Cells - UA 10-25 SEEN /hpf (5-10); White Blood Cells 50-100 SEEN /hpf (0-5)
== END | disposition home or self-care (01) ==
PROVIDERS: PCP Pediatrics; Visit Provider Physician Assistant
DX: R30.0 Dysuria (principal)
CPT/HCPCS: 81001; 87086; 87088; 87186

== ENCOUNTER 2023-08-13 07:12 | Outpatient (RCR) | payer MEDICAID, SELFPAY ==
--- NOTE | 2023-08-23 14:58 | BH.TPR ---
Treatment Plan Review Demographics Date of Admission:: 07/26/23 Date of Treatment Plan Review:: 08/23/23 Admitting Diagnoses:: Major depressive disorder, recurrent, severe without psychosis F 33.2; Generalized anxiety disorder; Social anxiety disorder; PTSD; Alcohol use disorder with full remission since January 2023; History of anorexia with purging by emesis; Avoidant and cluster B traits Current Diagnoses:: Major depressive disorder, recurrent, severe without psychosis F 33.2; Generalized anxiety disorder; Social anxiety disorder; PTSD; Alcohol use disorder with full remission since January 2023; History of anorexia with purging by emesis; Avoidant and cluster B traits Patient Status Patient's Response to Treatment:: Pt continues to respond well to treatment AEB pt's consistent attendance, ongoing attentiveness and engagement in group discussions, and continued reporting use of skills outside treatment environment. Pt's symptoms are still 55% lower than they were at IOP admission. Status of Current Problems and Symptoms: Pt is reporting continued improvement in her mental health with ability to manage emotions, challenging negative thoughts, and giving herself more credit instead of criticizing herself. Pt reports mild anxious and depressive symptoms currently. Pt's biggest stressors are connected to maintaining, accepting dann and not overthinking, and building healthy relationships. Progress Problem #1: Problem Name:: Pt will maintain or see a reduction in sx Status of Goals:: Obj 1 - complete with ongoing work encouraged. Pt's DSM 5 scores for depression are 75% lower than they were at IOP admission and anxiety is still 50% lower compared to IOP admission. Obj 2 - complete with ongoing work encouraged. Pt had been reporting using opposite action, being vulnerable with her partner, practicing self-compassion, and finding positive evidence. Team Recommendations:: Recommended client continue IOP aftercare group in addition to attending regular outpatient counseling in order to maintain gains. Pt also recommended to continue working on self-compassion and setting realistic goals.
--- NOTE | 2023-09-06 14:57 | BH.DS_ITS ---
Discharge Summary Demographics Date of Admission:: 07/26/23 Discharge Date: 09/06/23 Presenting Problems at Admission:: Pt discharged from IOP tx and transitioned to IOP aftercare to maintain gains pt made in IOP and to reinforce healthy coping skills. At admission to IOP aftercare, pt continued to report symptoms of depression, anxiety, and stress within her future and family. Pt also was experiencing stressors with challenging negative core beliefs, setting boundaries with family, and maintaining self-care. Discharge Diagnoses:: Major depressive disorder, recurrent, severe without psychosis F 33.2; Generalized anxiety disorder; Social anxiety disorder; PTSD; Alcohol use disorder with full remission since January 2023; History of anorexia with purging by emesis; Avoidant and cluster B traits Reason for Discharge:: Pt has accomplished tx goals AEB ability to maintain mood stability and gains made in IOP. Pt will continue with traditional outpatient counseling. Treatment Progress During Treatment & Response: Pt responded well and made progress in IOP aftercare as evidenced by pt's participation in group discussions and self- report of consistently applying coping skills. Pt did not turn in her DSM-5, so there is no data to compare pt's symptom reduction. However, pt was reporting improved mood, energy, and outlook prior to discharge and pt reported a 55% re duction in symptoms at review. Additionally, at discharge Pt was reporting consistently practicing self-care, using healthy coping skills, and communicating with supports. Pt still has symptoms and stressors that need resolved and processed, but pt reports overall increased ability to cope. Issues Still to be Addressed:: Negative thinking patterns, all or nothing expectations of self, consistent self-care, trauma responses and triggers, boundary setting and assertive communication, and maintenance of healthy coping skills. Discharge Recommendations/Instructions:: Pt will follow up with Julia Seals through [facility] for medication management. Pt wanted to wait until she moved to [place] to find an outpatient therapist. Discharge Handout
== END 2023-09-11 23:59 ==
LOC: BHOG 07:12
PROVIDERS: PCP Pediatrics; Referring Provider Psychiatry & Neurology Psychiatry; Visit Provider Psychiatry & Neurology Psychiatry
DX: F33.2 Major depressive disorder, recurrent severe without psychotic features (principal); F41.1 Generalized anxiety disorder; F43.10 Post-traumatic stress disorder, unspecified; F10.91 Alcohol use, unspecified, in remission; Z79.899 Other long term (current) drug therapy
CPT/HCPCS: 90853

== ENCOUNTER 2023-09-12 06:35 | Outpatient (RCR) | payer MEDICAID, SELFPAY | END 2023-10-04 09:35 | disposition home or self-care (01) | LOC: BHOG 06:35 | PROVIDERS: PCP Pediatrics; Referring Provider Psychiatry & Neurology Psychiatry; Visit Provider Psychiatry & Neurology Psychiatry | DX: Z00.00 Encounter for general adult medical examination without abnormal findings (principal) ==

== ENCOUNTER → 2024-12-16 | Outpatient (CLI) | payer MEDICAID, SELFPAY ==
[2024-12-16 15:37] LABS: Mucous, Urine 0 SEEN /hpf (<or=2+)
[2024-12-16 16:24] LABS: Color, Urine Straw (Yellow); Glucose, Dipstick Normal (Normal); Ketone-Dipstick Negative (Negative); Leukocyte Esterase-Dipstick Negative /ul (Negative); Nitrite-Dipstick Negative (Negative); Occult Blood-Urine Negative /ul (Negative); Protein-Dipstick Negative (Negative); Specific Gravity, Urine 1.010 (1.002-1.030); Urine Bilirubin Dipstick Negative (Negative)
[2024-12-16 22:32] LABS: Red Blood Cells-Urine 0-5 SEEN /hpf (0-5); Squamous Epithelial Cells - UA 0-5 SEEN /hpf (5-10)
== END | disposition home or self-care (01) ==
LOC: LABSPEC 15:29
PROVIDERS: PCP Pediatrics; Referring Provider Physician Assistant; Visit Provider Physician Assistant
DX: R30.0 Dysuria (principal)
CPT/HCPCS: 81001; 87086; 87088

== ENCOUNTER → 2025-03-24 | Outpatient (CLI) | payer MEDICAID, SELFPAY | END | disposition home or self-care (01) | LOC: LABSPEC 15:08 | PROVIDERS: PCP Pediatrics; Visit Provider Physician Assistant | DX: R30.0 Dysuria (principal) | CPT/HCPCS: 87077; 87086; 87088; 87186 ==